=== PATIENT | male | born 1945 | race Caucasian/White ===

== ENCOUNTER 2016-08-24 15:44 | Outpatient (RCR) | payer MEDICARE ==
--- OUTSIDE RECORDS SUMMARY | 2016-08-19 09:09 | XMS REPORT | Continuity of Care Document ---
Author Author [facility] Organization [facility] Address Unknown Phone Unavailable Care Team Providers Care Delivery Engineer Name Role Phone Jayashree Wade PCP [phone] Source Comments Some departments are not documenting in the electronic medical record. If you do not see the information that you expected, contact Release of Information in the Health Information Management department at [phone] for further assistance in locating additional records.[facility] Active Allergies and Adverse Reactions No Known Allergies Current Medications Prescription Sig. Disp. Refills Start End Date Status Date aspirin 81 mg chewable Chew 1 Tab by mouth 90 Tab 3 25/20 Active tablet daily. Take with food. 16 oxyCODONE (ROXICODONE, Take 1-2 Tabs by mouth 30 Tab 0 25/20 Active OXY-IR) 5 mg tablet every 4 hours as needed 16 amiodarone (CORDARONE) Take 2 tabs twice a day 98 Tab 0 25/20 Active 200 mg tablet for 2 weeks, then 2 tabs 16 once a day for 2 weeks, then 1 tab once a day until complete warfarin (COUMADIN) 1 mg Take 0.5 Tabs by mouth at 90 Tab 3 /25/20 Active tablet bedtime daily. 16 senna/docusate Take 2 Tabs by mouth 40 Tab 0 25/20 Active (SENOKOT-S) 8.6/50 mg twice daily. 16 tablet potassium chloride SR Take 1 Tab by mouth 30 Tab 0 25/20 Active (K-DUR) 10 mEq tablet daily. Take with a meal 16 and a full glass of water. metoprolol XL (TOPROL XL) Take 1 Tab by mouth 90 Tab 3 11/25/20 Active 25 mg extended release daily. 16 tablet furosemide (LASIX) 20 mg Take 1 Tab by mouth every 30 Tab 0 08/07/20 Active tablet morning. 16 ibuprofen (MOTRIN) 800 mg Take 800 mg by mouth 08/07/20 Discontin tablet every 6 hours as needed 16 ued for Pain. Take with food. Active Problems Problem Noted Date CKD (chronic kidney disease) stage 3, GFR 30-59 ml/min 08/04/2016 Acute blood loss anemia 08/04/2016 Pulmonary hypertension (HCC) 08/02/2016 Nonrheumatic aortic valve insufficiency 08/01/2016 Non-rheumatic mitral regurgitation 08/01/2016 Dilated aortic root (HCC) 08/01/2016 Overview: Root replacement 08/03/16 Acute on chronic diastolic heart failure (HCC) 08/01/2016 Resolved Problems Problem Noted Date Resolved Date Postop shock,cardiogenic ([facility]) 08/04/2016 08/07/2016 Acute systolic heart failure (HCC) 08/04/2016 08/07/2016 Ventricular tachycardia ([facility]) 08/03/2016 08/07/2016 CAP (community acquired pneumonia) 08/01/2016 08/04/2016 Most Recent Encounters Date Type Specialty Providers Description 08/19/2016 Telephone Cardiothoracic Surgery Padilla Shelley RN Numbness 08/10/2016 Telephone Natali Williamson RN Follow-up Phone Call - [phone] 08/03/2016 [facility]iology Yuval Mcdonald PA-C Canceled (Error ) Encounter 08/03/2016 Surgery Aryan Mijares MD REPLACEMENT MITRAL VALVE 08/02/2016 Anesthesia Lorraine Quinonez MD Event 07/31/2016 Hospital Aryan Mijares MD Non-rheumatic mitral - Encounter regurgitation 08/07/2016 07/31/2016 Hospital Sterling Diana MD Encounter Social History Tobacco Use Types Packs/Day Years Used Date Never Smoker Alcohol Use Drinks/Week oz/Week Comments Yes 6 Cans of 3.6 beer Last Filed Vital Signs Vital Sign Reading Time Taken Blood Pressure 108/61 08/07/2016 12:00 PM PHOTOGRAPHIC COLORIST Pulse 63 08/07/2016 12:00 PM PHOTOGRAPHIC COLORIST Temperature 36.5 C (97.7 F) 08/07/2016 12:00 PM PHOTOGRAPHIC COLORIST Respiratory Rate - - Height 1.753 m (5' 9.02") 08/03/2016 6:45 AM PHOTOGRAPHIC COLORIST Weight 82.555 kg (182 lb) 08/07/2016 5:44 AM PHOTOGRAPHIC COLORIST Body Mass Index 26.86 08/07/2016 5:44 AM PHOTOGRAPHIC COLORIST Oxygen Saturation 97% 08/07/2016 12:00 PM PHOTOGRAPHIC COLORIST Plan of Care Date Type Specialty Providers Description 09/02/2016 Appointment Cardiothoracic Surgery Aryan Mijares MD [address] [facility] [address] [place] [address] [phone] (Fax) Health Maintenance Due Date Last Done Comments Hepatitis C Screening 1945 Physical (Comprehensive) 1952 Exam Pertussis Vaccine 1956 Tetanus Vaccine 1962 Colorectal Cancer 1995 Screening Shingles Vaccine 2005 Prevnar/Pneumovax (#1) 2010 Influenza Vaccine 05/14/2016 Procedures from Last 3 Months Procedure Name Priority Date/Time Associated Diagnosis Comments PROCEDURES-SCAN 08/11/2016 Results for this 12:09 PM PHOTOGRAPHIC COLORIST procedure are in the results section. PROCEDURES-SCAN 08/11/2016 Results for this 8:59 AM PHOTOGRAPHIC COLORIST procedure are in the results section. PROCEDURES-SCAN 08/11/2016 Results for this 8:59 AM PHOTOGRAPHIC COLORIST procedure are in the results section. PROCEDURES-SCAN 08/11/2016 Results for this 8:59 AM PHOTOGRAPHIC COLORIST procedure are in the results section. PROCEDURES-SCAN 08/11/2016 Results for this 8:58 AM PHOTOGRAPHIC COLORIST procedure are in the results section. PROCEDURES-SCAN 08/11/2016 Results for this 8:53 AM PHOTOGRAPHIC COLORIST procedure are in the results section. PROCEDURES-SCAN 08/11/2016 Results for this 8:52 AM PHOTOGRAPHIC COLORIST procedure are in the results section. PROCEDURES-SCAN 08/11/2016 Results for this 8:52 AM PHOTOGRAPHIC COLORIST procedure are in the results section. PROCEDURES-SCAN 08/05/2016 Results for this 6:58 AM PHOTOGRAPHIC COLORIST procedure are in the results section. PROCEDURES-SCAN 08/04/2016 Results for this 7:59 AM PHOTOGRAPHIC COLORIST procedure are in the results section. PROCEDURES-SCAN 08/04/2016 Results for this 7:59 AM PHOTOGRAPHIC COLORIST procedure are in the results section. PROCEDURES-SCAN 08/04/2016 Results for this 7:59 AM PHOTOGRAPHIC COLORIST procedure are in the results section. ANESTHESIA Routine 08/03/2016 Results for this TRANSEESOPHAGEAL 1:59 PM PHOTOGRAPHIC COLORIST procedure are in the ECHOCARDIOGRAM results section. ANESTHESIA PULMONARY Routine 08/03/2016 Results for this ARTERY CATHETER INSERTION 1:59 PM PHOTOGRAPHIC COLORIST procedure are in the results section. ANESTHESIA CENTRAL LINE Routine 08/03/2016 Results for this INSERTION 1:59 PM PHOTOGRAPHIC COLORIST procedure are in the results section. ANESTHESIA ARTERIAL LINE Routine 08/03/2016 Results for this INSERTION 1:59 PM PHOTOGRAPHIC COLORIST procedure are in the results section. Results from Last 3 Months PROCEDURES-SCAN (08/11/2016 12:09 PM) Narrative Ordered by an unspecified provider. PROCEDURES-SCAN (08/11/2016 8:59 AM) Narrative Ordered by an unspecified provider. PROCEDURES-SCAN (08/11/2016 8:59 AM) Narrative Ordered by an unspecified provider. PROCEDURES-SCAN (08/11/2016 8:59 AM) Narrative Ordered by an unspecified provider. PROCEDURES-SCAN (08/11/2016 8:58 AM) Narrative Ordered by an unspecified provider. PROCEDURES-SCAN (08/11/2016 8:53 AM) Narrative Ordered by an unspecified provider. PROCEDURES-SCAN (08/11/2016 8:52 AM) Narrative Ordered by an unspecified provider. PROCEDURES-SCAN (08/11/2016 8:52 AM) Narrative Ordered by an unspecified provider. CHEST 2 VIEWS (08/07/2016 6:56 AM)Only the most recent of 3 results within the time period is included. Impressions Impression: Postsurgical chest with no evidence of acute cardiopulmonary process. Finalized by Tyler Bah M.D. on 08/07/2016 7:31 AM. Dictated by Tyler Bah M.D. on 08/07/2016 7:28 AM. Narrative PA and lateral chest Clinical indication: Mitral and aortic valve disease. Pulmonary hypertension Comparison made to study one day prior. Postsurgical changes of prior median sternotomy and valve replacement are noted. Heart size is within normal limits. Mediastinal contour appears stable. There is no evidence of vascular congestion, pleural effusion or focal pulmonary infiltrate. There is no evidence of pneumothorax. Procedure Note Interface, Radiant Results - WedAug 07, 2016 7:34 AM PHOTOGRAPHIC COLORIST PA and lateral chest Clinical indication: Mitral and aortic valve disease. Pulmonary hypertension Comparison made to study one day prior. Postsurgical changes of prior median sternotomy and valve replacement are noted. Heart size is within normal limits. Mediastinal contour appears stable. There is no evidence of vascular congestion, pleural effusion or focal pulmonary infiltrate. There is no evidence of pneumothorax. IMPRESSION Impression: Postsurgical chest with no evidence of acute cardiopulmonary process. Finalized by Tyler Bah M.D. on 08/07/2016 7:31 AM. Dictated by Tyler Bah M.D. on 08/07/2016 7:28 AM. PROTIME INR (PT) (08/07/2016 4:51 AM)Only the most recent of 5 results within the time period is included. Component Value Range INR 2.2 (H) 0.8-1.2 Specimen Blood BASIC METABOLIC PANEL (08/07/2016 4:51 AM)Only the most recent of 8 results within the time period is included. Component Value Range Sodium 131 (L) 137-147 MMOL/L Potassium 4.6 3.5-5.1 MMOL/L Chloride 98 98-110 MMOL/L CO2 28 21-30 MMOL/L Anion Gap 5 3-12 Glucose 95 70-100 MG/DL Blood Urea Nitrogen 24 7-25 MG/DL Creatinine 0.94 0.4-1.24 MG/DL Calcium 8.9 8.5-10.6 MG/DL eGFR Non >60Comment: >60 mL/min The eGFR is not validated for use in drug dosing adjustments. Continue to use estimated creatinine clearance per dosing reference text. Please contact the Clinical Pharmacist for questions. eGFR >60Comment: >60 mL/min The eGFR is not validated for use in drug dosing adjustments. Continue to use estimated creatinine clearance per dosing reference text. Please contact the Clinical Pharmacist for questions. Specimen Blood CBC (08/07/2016 4:51 AM)Only the most recent of 9 results within the time period is included. Component Value Range White Blood Cells 8.6 4.5-11.0 K/UL RBC 3.28 (L) 4.4-5.5 M/UL Hemoglobin 9.2 (L) 13.5-16.5 GM/DL Hematocrit 28.5 (L) 40-50 % MCV 87.0 80-100 FL MCH 27.9 26-34 PG MCHC 32.1 32.0-36.0 G/DL RDW 14.4 11-15 % Platelet Count 186 150-400 K/UL MPV 8.3 7-11 FL Specimen Blood POC GLUCOSE (08/06/2016 8:42 PM)Only the most recent of 39 results within the time period is included. Component Value Range Glucose, POC 112 (H) 70-100 MG/DL CHEST SINGLE VIEW (08/06/2016 5:36 AM)Only the most recent of 5 results within the time period is included. Impressions 1. Resolution of trace right apical pneumothorax. 2. Prior median sternotomy and aortic valve replacement. Approved by Valorie Dumont M.D. on 08/06/2016 11:56 AM By my electronic signature, I attest that I have personally reviewed the images for this examination and formulated the interpretations and opinions expressed in this report Finalized by Tyler Bah M.D. on 08/06/2016 12:24 PM. Dictated by Valorie Dumont M.D. on 08/06/2016 10:52 AM. Narrative EXAM: CHEST SINGLE VIEW HISTORY: s/p AVR, aortic valve replacement. TECHNIQUE: A single portable AP view of the chest was obtained. COMPARISON: Chest radiograph August 05, 2016 FINDINGS: Prior median sternotomy and aortic valve replacement. The heart is normal in size without pulmonary venous congestion. Resolution of trace right apical pneumothorax. No pleural effusion. Persistent mild bibasilar atelectasis. Procedure Note Interface, Radiant Results - [place] Aug 06, 2016 12:28 PM PHOTOGRAPHIC COLORIST EXAM: CHEST SINGLE VIEW HISTORY: s/p AVR, aortic valve replacement. TECHNIQUE: A single portable AP view of the chest was obtained. COMPARISON: Chest radiograph August 05, 2016 FINDINGS: Prior median sternotomy and aortic valve replacement. The heart is normal in size without pulmonary venous congestion. Resolution of trace right apical pneumothorax. No pleural effusion. Persistent mild bibasilar atelectasis. IMPRESSION 1. Resolution of trace right apical pneumothorax. 2. Prior median sternotomy and aortic valve replacement. Approved by Valorie Dumont M.D. on 08/06/2016 11:56 AM By my electronic signature, I attest that I have personally reviewed the images for this examination and formulated the interpretations and opinions expressed in this report Finalized by Tyler Bah M.D. on 08/06/2016 12:24 PM. Dictated by Valorie Dumont M.D. on 08/06/2016 10:52 AM. PROCEDURES-SCAN (08/05/2016 6:58 AM) Narrative Ordered by an unspecified provider. O2 SATURATION, MIXED VENOUS (08/04/2016 9:18 AM)Only the most recent of 4 results within the time period is included. Component Value Range [id number] Venous 57.2 % Specimen Blood PROCEDURES-SCAN (08/04/2016 7:59 AM) Narrative Ordered by an unspecified provider. PROCEDURES-SCAN (08/04/2016 7:59 AM) Narrative Ordered by an unspecified provider. PROCEDURES-SCAN (08/04/2016 7:59 AM) Narrative Ordered by an unspecified provider. POTASSIUM (08/03/2016 8:30 PM) Component Value Range Potassium 4.1 3.5-5.1 MMOL/L Specimen Blood BLOOD GASES, ARTERIAL (08/03/2016 8:30 PM)Only the most recent of 2 results within the time period is included. Component Value Range pH-Arterial 7.46 (H) 7.35-7.45 pCO2-Arterial 30 (L) 35-45 MMHG pO2-Arterial 90 80-100 MMHG Base Deficit-Arterial 2.0 MMOL/L O2 Sat-Arterial 97.6 95-99 % Jimfwnffede-EQW-Oxt 22.7 21-28 MMOL/L Specimen Blood, arterial - Blood POC BLOOD GAS ARTERIAL (08/03/2016 7:08 PM)Only the most recent of 6 results within the time period is included. Component Value Range PH-ART-POC 7.41 7.35-7.45 SYM7-XOI-WMF 29 (L) 35-45 MMHG PO2-ART-POC 78 (L) 80-100 MMHG Base Def-ART-POC 6.0 MMOL/L O2 Sat-ART-POC 96.0 95-99 % Okqpwnnklur-PUZ-HBF 18.2 (L) 21-28 MMOL/L LINE [facility] 1V CXR (08/03/2016 2:43 PM) Impressions 1.INTERVAL STERNOTOMY AND PROSTHETIC MITRAL VALVE REPLACEMENT. 2.TUBES AND LINES IN PLACE ABOVE. 3.NO SIGNIFICANT CHANGE IN RIGHT UPPER LOBE ALVEOLAR INFILTRATE CONCERNING FOR PNEUMONIA. Approved by Jeffrey Pratt M.D. on 08/03/2016 3:53 PM By my electronic signature, I attest that I have personally reviewed the images for this examination and formulated the interpretations and opinions expressed in this report Finalized by Antonio Santiago M.D. on 08/03/2016 4:04 PM. Dictated by Jeffrey Pratt M.D. on 08/03/2016 3:00 PM. Narrative LINE [facility]CMT 1V CXR History: ET Tube and Line Placement. Technique: Single portable AP upright view of the chest was obtained. Comparison: Chest x-ray from August 02, 2016. Findings: ET tube in place approximately well above the johnny. Right IJ L[place]-Yessenia catheter in place with tip overlying the main pulmonary artery. Right thoracostomy tube and [address] Median sternotomy and prosthetic mitral valve replacement. The cardiac silhouette is within normal limits of size. There is no pulmonary vascular congestion. No pneumothorax. Patchy alveolar consolidation involving the right upper lobe is unchanged. Small bilateral pleural effusions , right greater than left. Procedure Note Interface, Radiant Results - WedAug 03, 2016 4:07 PM PHOTOGRAPHIC COLORIST LINE PLCMT 1V CXR History: ET Tube and Line Placement. Technique: Single portable AP upright view of the chest was obtained. Comparison: Chest x-ray from August 02, 2016. Findings: ET tube in place approximately well above the johnny. Right IJ L[place]-Yessenia catheter in place with tip overlying the main pulmonary artery. Right thoracostomy tube and [address] Median sternotomy and prosthetic mitral valve replacement. The cardiac silhouette is within normal limits of size. There is no pulmonary vascular congestion. No pneumothorax. Patchy alveolar consolidation involving the right upper lobe is unchanged. Small bilateral pleural effusions , right greater than left. IMPRESSION 1. INTERVAL STERNOTOMY AND PROSTHETIC MITRAL VALVE REPLACEMENT. 2. TUBES AND LINES IN PLACE ABOVE. 3. NO SIGNIFICANT CHANGE IN RIGHT UPPER LOBE ALVEOLAR INFILTRATE CONCERNING FOR PNEUMONIA. Approved by Jeffrey Pratt M.D. on 08/03/2016 3:53 PM By my electronic signature, I attest that I have personally reviewed the images for this examination and formulated the interpretations and opinions expressed in this report Finalized by Antonio Santiago M.D. on 08/03/2016 4:04 PM. Dictated by Jeffrey Pratt M.D. on 08/03/2016 3:00 PM. POC IONIZED CALCIUM (08/03/2016 2:27 PM)Only the most recent of 7 results within the time period is included. Component Value Range Ionized Calcium-POC 1.16 1.0-1.3 MMOL/L POC SODIUM (08/03/2016 2:27 PM)Only the most recent of 7 results within the time period is included. Component Value Range Sodium-POC 137 137-147 MMOL/L POC POTASSIUM (08/03/2016 2:27 PM)Only the most recent of 7 results within the time period is included. Component Value Range Potassium-POC 3.6 3.5-5.1 MMOL/L POC HEMATOCRIT (08/03/2016 2:27 PM)Only the most recent of 7 results within the time period is included. Component Value Range Hemoglobin POC 9.9 (L) 13.5-16.5 GM/DL Hematocrit POC 29.0 (L) 40-50 % MAGNESIUM (08/03/2016 2:20 PM) Component Value Range Magnesium 3.3 (H) 1.6-2.6 MG/DL Specimen Blood PTT (APTT) (08/03/2016 2:20 PM)Only the most recent of 2 results within the time period is included. Component Value Range APTT 27.0 24.0-40.0 SEC Specimen Blood ANESTHESIA TRANSEESOPHAGEAL ECHOCARDIOGRAM (08/03/2016 1:59 PM) Rosanna Huerta MD 08/03/20161:59 PM Anesthesia Procedure: Arterial Line Placement A-LINE INSERTION Date/Time: 08/03/2016 7:39 AM Patient location: OR Indications: hemodynamic monitoring Staff Anesthesiologist: IVON HUERTA Preprocedure checklist performed: 2 patient identifiers, risks & benefits discussed, patient evaluated, consent obtained and patient being monitored Arterial Line Procedure Patient sedated: yes (see MAR) Sedation type: general; Artery prepped with chlorhexidine; skin prep agent completely dried prior to procedure. Location: radial artery Technique: palpation Needle gauge: 20 G Number of attempts: 1 Procedure Outcome Catheter secured with adhesive dressing applied Events: no complications noted during insertion Observation: pt tolerated well Anesthesia Procedure: Central Venous Catheter Line CENTRAL LINE INSERTION Date/Time: 08/03/2016 7:41 AM Patient location: OR Indications: hemodynamic pressure monitoring Staff Anesthesiologist: IVON HUERTA Performed by: IVON HUERTA Preprocedure checklist performed: 2 patient identifiers, risks & benefits discussed, patient evaluated, timeout performed, consent obtained, patient being monitored and CVC bundle followed (proper hand washing, maximal sterile barrier technique with cap, sterile gown, sterile glove, sterile drape, and skin prep for antisepsis) CVC Line Insertion Procedure Patient sedated: yes Sedation given: generalSkin prepped with chlorhexidine; skin prep agent completely dried prior to procedure. Location: internal jugular vein Laterality: right Vein identification: anatomical landmarks Number of attempts: 1 Successful placement: yes Catheter: Catheter type: introducer placed using standard wire through needle technique Catheter size: 9 Fr Procedure Outcome Post procedure: all ports aspirated, dressing applied and line sutured; Dressing: sterile occlusive dressing Events: none Observations: patient tolerated well Anesthesia Procedure: Pulmonary Artery Catheter PULMONARY ARTERY CATHETER INSERTION Date/Time: 08/03/2016 8:05 AM This note is used in conjunction with the CVC Line Insertion note for additional details regarding the insertion of a Pulmonary Artery Catheter: Anesthesiologist: IVON HUERTA Inserted by: IVON HUERTA PA Catheter Insertion Procedure Catheter type: standard Insertion depth: 45 cm Events: none Anesthesia Procedure: Transesophageal Echocardiogram BRENDAN Date/Time: 08/03/2016 9:10 AM Associated procedure: MVR Preprocedure checklist performed: 2 patient identifiers, risks & benefits discussed, patient evaluated, timeout performed, consent obtained and patient being monitored Staff Anesthesiologist: IVON HUERTA Performed personally Indication for BRENDAN: assessment of ascending aorta, confirmation of pre-procedure diagnosis and valvular assessment CPT codes: 40804 - BRENDAN 2D imaging (w or w/o M-mode) including probe placement, image acquisition, interpretation & report, 29539 - PWD and/or CWD f/u or limited study and 23548 - Color flow velocity mapping Patient location: OR Intubated: yes Bite block: yes Heart visualized: yes Insertion: easy Probe type: multiplane Modalities: 2D, color flow mapping, pulse wave Doppler and continuous wave Doppler Echocardiographic and Doppler Measurements Ventricular Findings Right Ventricle RV cavity size: normal RV hypertrophy: no RV thrombus: no RV global function: normal Left Ventricle LV cavity size: normal LV hypertrophy: no LV thrombus: no LV global function: normal LV ejection fraction: 50% Ventricular Wall Motion Four Chamber View Basal anterolateral: normal Basal inferoseptal: normal Mid anterolateral: normal Mid inferoseptal: normal Apical lateral: normal Apical septal: normal Two Chamber View Basal anterior: normal Basal inferior: normal Mid anterior: normal Mid inferior: normal Apical anterior: normal Apical inferior: normal Long [place] View Basal anteroseptal: normal Basal inferolateral: normal Mid anteroseptal: normal Mid inferolateral: normal Apical lateral: normal Apical septal: normal [place]: normal Mid Short [place] View Mid anteroseptal: normal Mid anterior: normal Mid anterolateral: normal Mid inferolateral: normal Mid inferior: normal Mid inferoseptal: normal Valves Aortic Valve Annulus: dilated Stenosis: none Annulus measurement: 2.9 cm Regurgitation severity: mild and Eccentric jet; unable to obtain P1/2t. vena contracta=0.38 Leaflet morphology: normal Leaflet motion: normal Mitral Valve Annulus: dilated Stenosis: none Regurgitation severity: severe Leaflet motion: flail Tricuspid Valve Annulus: normal Stenosis: none Regurgitation severity: mild Leaflet morphology: normal Leaflet motion: normal Pulmonic Valve Annulus: normal Stenosis: none Regurgitation severity: mild Leaflet morphology: normal Aorta Ascending Aorta Size: dilated Diameter: 4.8 cm Dissection: no Plaque thickness: 0-3 mm Plaque mobile: no Sinotubular Junction Size: dilated Diameter: 3.9 cm Dissection: no Plaque thickness: 0-3 mm Plaque mobile: no Sinus of Valsalva Size: dilated Diameter: 4.3 cm Dissection: no Plaque thickness: 0-3 mm Plaque mobile: no Descending Thoracic Aorta Size: normal Dissection: no Plaque thickness: 0-3 mm Plaque mobile: no Atria Right Atrium Size: normal SEC (smoke): no Thrombus: no Tumor: no Device: no Left Atrium Size: normal SEC (smoke): no Thrombus: no Tumor: no Device: no Left atrial appendage size: normal Septa Intra-atrial septal morphology: normal Intra-ventricular septal morphology: normal Other Findings Pericardium: normal Pleural effusion: none Pulmonary arteries: normal Pulmonary venous flow: normal Post Procedure Mitral valve replacement Perivalvular leak: no Mean gradient (mmHg): Systolic anterior motion of the mitral valve: no Return to CBT for echo-related diagnosis: no Aorta intact after decannulation: yes Post-procedure LVEF measured: yes; 40% Post-procedure RV dysfunction: mild dysfunction ANESTHESIA PULMONARY ARTERY CATHETER INSERTION (08/03/2016 1:59 PM) Rosanna Huerta MD 08/03/20161:59 PM Anesthesia Procedure: Arterial Line Placement A-LINE INSERTION Date/Time: 08/03/2016 7:39 AM Patient location: OR Indications: hemodynamic monitoring Staff Anesthesiologist: IVON HUERTA Preprocedure checklist performed: 2 patient identifiers, risks & benefits discussed, patient evaluated, consent obtained and patient being monitored Arterial Line Procedure Patient sedated: yes (see MAR) Sedation type: general; Artery prepped with chlorhexidine; skin prep agent completely dried prior to procedure. Location: radial artery Technique: palpation Needle gauge: 20 G Number of attempts: 1 Procedure Outcome Catheter secured with adhesive dressing applied Events: no complications noted during insertion Observation: pt tolerated well Anesthesia Procedure: Central Venous Catheter Line CENTRAL LINE INSERTION Date/Time: 08/03/2016 7:41 AM Patient location: OR Indications: hemodynamic pressure monitoring Staff Anesthesiologist: IVON HUERTA Performed by: IVON HUERTA Preprocedure checklist performed: 2 patient identifiers, risks & benefits discussed, patient evaluated, timeout performed, consent obtained, patient being monitored and CVC bundle followed (proper hand washing, maximal sterile barrier technique with cap, sterile gown, sterile glove, sterile drape, and skin prep for antisepsis) CVC Line Insertion Procedure Patient sedated: yes Sedation given: generalSkin prepped with chlorhexidine; skin prep agent completely dried prior to procedure. Location: internal jugular vein Laterality: right Vein identification: anatomical landmarks Number of attempts: 1 Successful placement: yes Catheter: Catheter type: introducer placed using standard wire through needle technique Catheter size: 9 Fr Procedure Outcome Post procedure: all ports aspirated, dressing applied and line sutured; Dressing: sterile occlusive dressing Events: none Observations: patient tolerated well Anesthesia Procedure: Pulmonary Artery Catheter PULMONARY ARTERY CATHETER INSERTION Date/Time: 08/03/2016 8:05 AM This note is used in conjunction with the CVC Line Insertion note for additional details regarding the insertion of a Pulmonary Artery Catheter: Anesthesiologist: IVON HUERTA Inserted by: IVON HUERTA PA Catheter Insertion Procedure Catheter type: standard Insertion depth: 45 cm Events: none Anesthesia Procedure: Transesophageal Echocardiogram BRENDAN Date/Time: 08/03/2016 9:10 AM Associated procedure: MVR Preprocedure checklist performed: 2 patient identifiers, risks & benefits discussed, patient evaluated, timeout performed, consent obtained and patient being monitored Staff Anesthesiologist: IVON HUERTA Performed personally Indication for BRENDAN: assessment of ascending aorta, confirmation of pre-procedure diagnosis and valvular assessment CPT codes: 03251 - BRENDAN 2D imaging (w or w/o M-mode) including probe placement, image acquisition, interpretation & report, 76515 - PWD and/or CWD f/u or limited study and 07213 - Color flow velocity mapping Patient location: OR Intubated: yes Bite block: yes Heart visualized: yes Insertion: easy Probe type: multiplane Modalities: 2D, color flow mapping, pulse wave Doppler and continuous wave Doppler Echocardiographic and Doppler Measurements Ventricular Findings Right Ventricle RV cavity size: normal RV hypertrophy: no RV thrombus: no RV global function: normal Left Ventricle LV cavity size: normal LV hypertrophy: no LV thrombus: no LV global function: normal LV ejection fraction: 50% Ventricular Wall Motion Four Chamber View Basal anterolateral: normal Basal inferoseptal: normal Mid anterolateral: normal Mid inferoseptal: normal Apical lateral: normal Apical septal: normal Two Chamber View Basal anterior: normal Basal inferior: normal Mid anterior: normal Mid inferior: normal Apical anterior: normal Apical inferior: normal [place] Basal anteroseptal: normal Basal inferolateral: normal Mid anteroseptal: normal Mid inferolateral: normal Apical lateral: normal Apical septal: normal [place]: normal Mid Short [place] Mid anteroseptal: normal Mid anterior: normal Mid anterolateral: normal Mid inferolateral: normal Mid inferior: normal Mid inferoseptal: normal Valves Aortic Valve Annulus: dilated Stenosis: none Annulus measurement: 2.9 cm Regurgitation severity: mild and Eccentric jet; unable to obtain P1/2t. vena contracta=0.38 Leaflet morphology: normal Leaflet motion: normal Mitral Valve Annulus: dilated Stenosis: none Regurgitation severity: severe Leaflet motion: flail Tricuspid Valve Annulus: normal Stenosis: none Regurgitation severity: mild Leaflet morphology: normal Leaflet motion: normal Pulmonic Valve Annulus: normal Stenosis: none Regurgitation severity: mild Leaflet morphology: normal Aorta Ascending Aorta Size: dilated Diameter: 4.8 cm Dissection: no Plaque thickness: 0-3 mm Plaque mobile: no Sinotubular Junction Size: dilated Diameter: 3.9 cm Dissection: no Plaque thickness: 0-3 mm Plaque mobile: no Sinus of Valsalva Size: dilated Diameter: 4.3 cm Dissection: no Plaque thickness: 0-3 mm Plaque mobile: no Descending Thoracic Aorta Size: normal Dissection: no Plaque thickness: 0-3 mm Plaque mobile: no Atria Right Atrium Size: normal SEC (smoke): no Thrombus: no Tumor: no Device: no Left Atrium Size: normal SEC (smoke): no Thrombus: no Tumor: no Device: no Left atrial appendage size: normal Septa Intra-atrial septal morphology: normal Intra-ventricular septal morphology: normal Other Findings Pericardium: normal Pleural effusion: none Pulmonary arteries: normal Pulmonary venous flow: normal Post Procedure Mitral valve replacement Perivalvular leak: no Mean gradient (mmHg): Systolic anterior motion of the mitral valve: no Return to [facility] for echo-related diagnosis: no Aorta intact after decannulation: yes Post-procedure LVEF measured: yes; 40% Post-procedure RV dysfunction: mild dysfunction ANESTHESIA CENTRAL LINE INSERTION (08/03/2016 1:59 PM) Rosanna Huerta MD 08/03/20161:59 PM Anesthesia Procedure: Arterial Line Placement A-LINE INSERTION Date/Time: 08/03/2016 7:39 AM Patient location: OR Indications: hemodynamic monitoring Staff Anesthesiologist: IVON HUERTA Preprocedure checklist performed: 2 patient identifiers, risks & benefits discussed, patient evaluated, consent obtained and patient being monitored Arterial Line Procedure Patient sedated: yes (see MAR) Sedation type: general; Artery prepped with chlorhexidine; skin prep agent completely dried prior to procedure. Location: radial artery Technique: palpation Needle gauge: 20 G Number of attempts: 1 Procedure Outcome Catheter secured with adhesive dressing applied Events: no complications noted during insertion Observation: pt tolerated well Anesthesia Procedure: Central Venous Catheter Line CENTRAL LINE INSERTION Date/Time: 08/03/2016 7:41 AM Patient location: OR Indications: hemodynamic pressure monitoring Staff Anesthesiologist: IVON HUERTA Performed by: IVON HUERTA Preprocedure checklist performed: 2 patient identifiers, risks & benefits discussed, patient evaluated, timeout performed, consent obtained, patient being monitored and CVC bundle followed (proper hand washing, maximal sterile barrier technique with cap, sterile gown, sterile glove, sterile drape, and skin prep for antisepsis) CVC Line Insertion Procedure Patient sedated: yes Sedation given: generalSkin prepped with chlorhexidine; skin prep agent completely dried prior to procedure. Location: internal jugular vein Laterality: right Vein identification: anatomical landmarks Number of attempts: 1 Successful placement: yes Catheter: Catheter type: introducer placed using standard wire through needle technique Catheter size: 9 Fr Procedure Outcome Post procedure: all ports aspirated, dressing applied and line sutured; Dressing: sterile occlusive dressing Events: none Observations: patient tolerated well Anesthesia Procedure: Pulmonary Artery Catheter PULMONARY ARTERY CATHETER INSERTION Date/Time: 08/03/2016 8:05 AM This note is used in conjunction with the CVC Line Insertion note for additional details regarding the insertion of a Pulmonary Artery Catheter: Anesthesiologist: IVON HUERTA Inserted by: IVON HUERTA PA Catheter Insertion Procedure Catheter type: standard Insertion depth: 45 cm Events: none Anesthesia Procedure: Transesophageal Echocardiogram BRENDAN Date/Time: 08/03/2016 9:10 AM Associated procedure: MVR Preprocedure checklist performed: 2 patient identifiers, risks & benefits discussed, patient evaluated, timeout performed, consent obtained and patient being monitored Staff Anesthesiologist: IVON HUERTA Performed personally Indication for BRENDAN: assessment of ascending aorta, confirmation of pre-procedure diagnosis and valvular assessment CPT codes: 59506 - BRENDAN 2D imaging (w or w/o M-mode) including probe placement, image acquisition, interpretation & report, 74839 - PWD and/or CWD f/u or limited study and 64492 - Color flow velocity mapping Patient location: OR Intubated: yes Bite block: yes Heart visualized: yes Insertion: easy Probe type: multiplane Modalities: 2D, color flow mapping, pulse wave Doppler and continuous wave Doppler Echocardiographic and Doppler Measurements Ventricular Findings Right Ventricle RV cavity size: normal RV hypertrophy: no RV thrombus: no RV global function: normal Left Ventricle LV cavity size: normal LV hypertrophy: no LV thrombus: no LV global function: normal LV ejection fraction: 50% Ventricular Wall Motion Four Chamber View Basal anterolateral: normal Basal inferoseptal: normal Mid anterolateral: normal Mid inferoseptal: normal Apical lateral: normal Apical septal: normal Two Chamber View Basal anterior: normal Basal inferior: normal Mid anterior: normal Mid inferior: normal Apical anterior: normal Apical inferior: normal [place] Basal anteroseptal: normal Basal inferolateral: normal Mid anteroseptal: normal Mid inferolateral: normal Apical lateral: normal Apical septal: normal [place]: normal Mid Short [place] Mid anteroseptal: normal Mid anterior: normal Mid anterolateral: normal Mid inferolateral: normal Mid inferior: normal Mid inferoseptal: normal Valves Aortic Valve Annulus: dilated Stenosis: none Annulus measurement: 2.9 cm Regurgitation severity: mild and Eccentric jet; unable to obtain P1/2t. vena contracta=0.38 Leaflet morphology: normal Leaflet motion: normal Mitral Valve Annulus: dilated Stenosis: none Regurgitation severity: severe Leaflet motion: flail Tricuspid Valve Annulus: normal Stenosis: none Regurgitation severity: mild Leaflet morphology: normal Leaflet motion: normal Pulmonic Valve Annulus: normal Stenosis: none Regurgitation severity: mild Leaflet morphology: normal Aorta Ascending Aorta Size: dilated Diameter: 4.8 cm Dissection: no Plaque thickness: 0-3 mm Plaque mobile: no Sinotubular Junction Size: dilated Diameter: 3.9 cm Dissection: no Plaque thickness: 0-3 mm Plaque mobile: no Sinus of Valsalva Size: dilated Diameter: 4.3 cm Dissection: no Plaque thickness: 0-3 mm Plaque mobile: no Descending Thoracic Aorta Size: normal Dissection: no Plaque thickness: 0-3 mm Plaque mobile: no Atria Right Atrium Size: normal SEC (smoke): no Thrombus: no Tumor: no Device: no Left Atrium Size: normal SEC (smoke): no Thrombus: no Tumor: no Device: no Left atrial appendage size: normal Septa Intra-atrial septal morphology: normal Intra-ventricular septal morphology: normal Other Findings Pericardium: normal Pleural effusion: none Pulmonary arteries: normal Pulmonary venous flow: normal Post Procedure Mitral valve replacement Perivalvular leak: no Mean gradient (mmHg): Systolic anterior motion of the mitral valve: no Return to [facility] for echo-related diagnosis: no Aorta intact after decannulation: yes Post-procedure LVEF measured: yes; 40% Post-procedure RV dysfunction: mild dysfunction ANESTHESIA ARTERIAL LINE INSERTION (08/03/2016 1:59 PM) Rosanna Huerta MD 08/03/20161:59 PM Anesthesia Procedure: Arterial Line Placement A-LINE INSERTION Date/Time: 08/03/2016 7:39 AM Patient location: OR Indications: hemodynamic monitoring Staff Anesthesiologist: IVON HUERTA Preprocedure checklist performed: 2 patient identifiers, risks & benefits discussed, patient evaluated, consent obtained and patient being monitored Arterial Line Procedure Patient sedated: yes (see MAR) Sedation type: general; Artery prepped with chlorhexidine; skin prep agent completely dried prior to procedure. Location: radial artery Technique: palpation Needle gauge: 20 G Number of attempts: 1 Procedure Outcome Catheter secured with adhesive dressing applied Events: no complications noted during insertion Observation: pt tolerated well Anesthesia Procedure: Central Venous Catheter Line CENTRAL LINE INSERTION Date/Time: 08/03/2016 7:41 AM Patient location: OR Indications: hemodynamic pressure monitoring Staff Anesthesiologist: IVON HUERTA Performed by: IVON HUERTA Preprocedure checklist performed: 2 patient identifiers, risks & benefits discussed, patient evaluated, timeout performed, consent obtained, patient being monitored and CVC bundle followed (proper hand washing, maximal sterile barrier technique with cap, sterile gown, sterile glove, sterile drape, and skin prep for antisepsis) CVC Line Insertion Procedure Patient sedated: yes Sedation given: generalSkin prepped with chlorhexidine; skin prep agent completely dried prior to procedure. Location: internal jugular vein Laterality: right Vein identification: anatomical landmarks Number of attempts: 1 Successful placement: yes Catheter: Catheter type: introducer placed using standard wire through needle technique Catheter size: 9 Fr Procedure Outcome Post procedure: all ports aspirated, dressing applied and line sutured; Dressing: sterile occlusive dressing Events: none Observations: patient tolerated well Anesthesia Procedure: Pulmonary Artery Catheter PULMONARY ARTERY CATHETER INSERTION Date/Time: 08/03/2016 8:05 AM This note is used in conjunction with the CVC Line Insertion note for additional details regarding the insertion of a Pulmonary Artery Catheter: Anesthesiologist: IVON HUERTA Inserted by: IVON HUERTA PA Catheter Insertion Procedure Catheter type: standard Insertion depth: 45 cm Events: none Anesthesia Procedure: Transesophageal Echocardiogram BRENDAN Date/Time: 08/03/2016 9:10 AM Associated procedure: MVR Preprocedure checklist performed: 2 patient identifiers, risks & benefits discussed, patient evaluated, timeout performed, consent obtained and patient being monitored Staff Anesthesiologist: IVON HUERTA Performed personally Indication for BRENDNA: assessment of ascending aorta, confirmation of pre-procedure diagnosis and valvular assessment CPT codes: 59058 - BRENDAN 2D imaging (w or w/o M-mode) including probe placement, image acquisition, interpretation & report, 69380 - PWD and/or CWD f/u or limited study and 14461 - Color flow velocity mapping Patient location: OR Intubated: yes Bite block: yes Heart visualized: yes Insertion: easy Probe type: multiplane Modalities: 2D, color flow mapping, pulse wave Doppler and continuous wave Doppler Echocardiographic and Doppler Measurements Ventricular Findings Right Ventricle RV cavity size: normal RV hypertrophy: no RV thrombus: no RV global function: normal Left Ventricle LV cavity size: normal LV hypertrophy: no LV thrombus: no LV global function: normal LV ejection fraction: 50% Ventricular Wall Motion Four Chamber View Basal anterolateral: normal Basal inferoseptal: normal Mid anterolateral: normal Mid inferoseptal: normal Apical lateral: normal Apical septal: normal Two [place] View Basal anterior: normal Basal inferior: normal Mid anterior: normal Mid inferior: normal Apical anterior: normal Apical inferior: normal [place] Basal anteroseptal: normal Basal inferolateral: normal Mid anteroseptal: normal Mid inferolateral: normal Apical lateral: normal Apical septal: normal [place]: normal Mid [place] Mid anteroseptal: normal Mid anterior: normal Mid anterolateral: normal Mid inferolateral: normal Mid inferior: normal Mid inferoseptal: normal Valves Aortic Valve Annulus: dilated Stenosis: none Annulus measurement: 2.9 cm Regurgitation severity: mild and Eccentric jet; unable to obtain P1/2t. vena contracta=0.38 Leaflet morphology: normal Leaflet motion: normal Mitral Valve Annulus: dilated Stenosis: none Regurgitation severity: severe Leaflet motion: flail Tricuspid Valve Annulus: normal Stenosis: none Regurgitation severity: mild Leaflet morphology: normal Leaflet motion: normal Pulmonic Valve Annulus: normal Stenosis: none Regurgitation severity: mild Leaflet morphology: normal Aorta Ascending Aorta Size: dilated Diameter: 4.8 cm Dissection: no Plaque thickness: 0-3 mm Plaque mobile: no Sinotubular Junction Size: dilated Diameter: 3.9 cm Dissection: no Plaque thickness: 0-3 mm Plaque mobile: no Sinus of Valsalva Size: dilated Diameter: 4.3 cm Dissection: no Plaque thickness: 0-3 mm Plaque mobile: no Descending Thoracic Aorta Size: normal Dissection: no Plaque thickness: 0-3 mm Plaque mobile: no Atria Right Atrium Size: normal SEC (smoke): no Thrombus: no Tumor: no Device: no Left Atrium Size: normal SEC (smoke): no Thrombus: no Tumor: no Device: no Left atrial appendage size: normal Septa Intra-atrial septal morphology: normal Intra-ventricular septal morphology: normal Other Findings Pericardium: normal Pleural effusion: none Pulmonary arteries: normal Pulmonary venous flow: normal Post Procedure Mitral valve replacement Perivalvular leak: no Mean gradient (mmHg): Systolic anterior motion of the mitral valve: no Return to [facility] for echo-related diagnosis: no Aorta intact after decannulation: yes Post-procedure LVEF measured: yes; 40% Post-procedure RV dysfunction: mild dysfunction SURGICAL PATHOLOGY (08/03/2016 1:43 PM) Component Value Range PATHOLOGY REPORT [email or web address] Yoanna Moreno MD, PhD, Director of Anatomic Pathology Department of Pathology and Laboratory Medicine [address] [place] [id number] Surgical Pathology Office: [phone] SURGICAL PATHOLOGY REPORT NAME: CORI GOMEZ SURG PATH #: [id number] MR #: [id number] SPECIMEN CLASS: SR BILLING #: [id number] ALT ID #: LOCATION: [facility] DATE OF PROCEDURE: 08/03/2016 AGE: 70 SEX: M DATE RECEIVED: 08/03/2016 : 1945 TIME RECEIVED: 13:43 PHYSICIAN: ARYAN MIJARES CTS DATE OF REPORT: 08/04/2016 COPY TO: DATE OF PRINTIN08/04/2016 ################################################## ###################### Final Diagnosis: A. Aorta, "ascending aorta", excision: Mild myxoid degeneration, consistent with aortic aneurysm clinically. B. Valve, "anterior mitral valve leaflets", excision: Myxoid degeneration and fibrosis. Attestation: By this signature, I attest that I have personally formulated the final interpretation expressed in this report and that the above diagnosis is based upon my examination of the slides and/or other material indicated in this report. +++Electronically Signed Out By+++ [facility]/08/03/2016 Interpreted by: Erin Son M.D. 08/04/2016 ################################################## ###################### Material Received: A: ascending aorta B: anterior mitral valve leaflets History: 70-year-old male with a clinical history of mitral regurgitation, aortic regurgitation, ascending aortic aneurysm. Gross Description: A. Fixative: Formalin Labeled: "Ascending aorta" Dimensions: 6.0 x 6.0 x 1.5 cm aggregate Calcifications: No Cassette A1- Adolescent Coordinator sections of aorta (j) B. Fixative: Formalin Labeled: "Anterior mitral valve leaflet" Dimensions: 4.0 x 2.5 x 0.3 Cassette B1- Adolescent Coordinator sections of valve. (j) jkh/08/03/2016 POC BLOOD GAS OMAR (08/03/2016 12:45 PM)Only the most recent of 2 results within the time period is included. Component Value Range PH-OMAR-POC 7.38 7.30-7.40 RTN4-NVM-XMD 41 36-50 MMHG PO2-OMAR-POC 43 33-48 MMHG Base Def-OMAR-POC 1.0 MMOL/L O2 Sat-OMAR-POC 78.0 (H) 55-71 % Zillhojqczs-PKJ-VDV 24.5 MMOL/L POC ACTIVATED CLOTTING TIME (08/03/2016 12:42 PM)Only the most recent of 6 results within the time period is included. Component Value Range Activated Clotting Time 110 s PREPARE APHERESIS PLATELETS (08/03/2016 6:56 AM) Component Value Range Units Ordered 1 Unit Number [id number] Blood Component Type APHERESIS PLT,LEUKO REDUCED,1ST CONT. Unit Division 0 Status OF Unit REL FROM ALLOC Transfusion Status OK TO TRANSFUSE Specimen Other (Specify) PREPARE PLASMA (FFP) (08/03/2016 6:55 AM) Component Value Range Units Ordered 4 Unit Number [id number] Blood Component Type APHERESIS PLASMA RT 2 Unit Division 0 Status OF Unit TRANSFUSED Transfusion Status OK TO TRANSFUSE Unit Number [id number] Blood Component Type APHERESIS PLASMA THAWED Unit Division 0 Status OF Unit REL FROM ALLOC Transfusion Status OK TO TRANSFUSE Unit Number [id number] Blood Component Type APHERESIS PLASMA THAWED Unit Division 0 Status OF Unit REL FROM ALLOC Transfusion Status OK TO TRANSFUSE Unit Number [id number] Blood Component Type THAWED PLASMA Unit Division 0 Status OF Unit TRANSFUSED Transfusion Status OK TO TRANSFUSE US DUPLEX SCAN CAROTID BILATERAL (08/03/2016 12:38 AM) Impressions Minimal bilateral common carotid intimal thickening and noncalcified atherosclerotic plaque, without hemodynamically significant carotid stenosis. By my electronic signature, I attest that I have personally reviewed the images for this examination and formulated the interpretations and opinions expressed in this report Finalized by Des Triana M.D. on 08/03/2016 1:33 AM. Dictated by Saurav Foster M.D. on 08/03/2016 1:27 AM. Narrative CAROTID DOPPLER ULTRASOUND: CLINICAL INDICATION: Preoperative evaluation TECHNIQUE: Multiple real-time grayscale sonographic images, color Doppler images , and duplex Doppler images were obtained of both carotid and vertebral arteries. FINDINGS: Doppler Measurements: Right: Left: Peak CCA 57 71 Peak ECA 129 81 Peak ICA 75 74 Diastolic ICA28 24 ICA/CCA Ratio1.3 1.0 (velocities given in cm/second) Minimal intimal thickening and noncalcified plaque is seen within the bilateral common carotid arteries.. The vertebral arteries are patent and show normal direction of flow. The spectral analysis is normal. Procedure Note Interface, Radiant Results - WedAug 03, 2016 1:36 AM PHOTOGRAPHIC COLORIST CAROTID DOPPLER ULTRASOUND: CLINICAL INDICATION: Preoperative evaluation TECHNIQUE: Multiple real-time grayscale sonographic images, color Doppler images , and duplex Doppler images were obtained of both carotid and vertebral arteries. FINDINGS: Doppler Measurements: Right: Left: Peak CCA 57 71 Peak ECA 129 81 Peak ICA 75 74 Diastolic ICA 28 24 ICA/CCA Ratio 1.3 1.0 (velocities given in cm/second) Minimal intimal thickening and noncalcified plaque is seen within the bilateral common carotid arteries.. The vertebral arteries are patent and show normal direction of flow. The spectral analysis is normal. IMPRESSION Minimal bilateral common carotid intimal thickening and noncalcified atherosclerotic plaque, without hemodynamically significant carotid stenosis. By my electronic signature, I attest that I have personally reviewed the images for this examination and formulated the interpretations and opinions expressed in this report Finalized by Des Triana M.D. on 08/03/2016 1:33 AM. Dictated by Saurav Foster M.D. on 08/03/2016 1:27 AM. BLOOD TYPE CONFIRMATION - ORDER ONLY IF REQUESTED BY LAB (08/02/2016 5:29 PM) Component Value Range ABO/RH(D) O POS Specimen Blood TYPE & CROSSMATCH (08/02/2016 11:37 AM) Component Value Range Units Ordered 4 Crossmatch Expires 08/05/2016 Record Check 2ND TYPE REQUIRED ABO/RH(D) O POS Antibody Screen NEG Unit Number [id number] Blood Component Type RBC,ADSOL,LEUKO REDUCED,2ND CONT. Unit Division 0 Status OF Unit TRANSFUSED Transfusion Status OK TO TRANSFUSE Crossmatch Result COMPATIBLE,ELECTRONIC Unit Number [id number] Blood Component Type RBC,ADSOL,LEUKO REDUCED,1ST CONT. Unit Division 0 Status OF Unit REL FROM ALLOC Transfusion Status OK TO TRANSFUSE Crossmatch Result COMPATIBLE,ELECTRONIC Unit Number [id number] Blood Component Type RBC,ADSOL,LEUKO REDUCED Unit Division 0 Status OF Unit REL FROM ALLOC Transfusion Status OK TO TRANSFUSE Crossmatch Result COMPATIBLE,ELECTRONIC Unit Number [id number] Blood Component Type RBC,ADSOL,LEUKO REDUCED Unit Division 0 Status OF Unit REL FROM ALLOC Transfusion Status OK TO TRANSFUSE Crossmatch Result COMPATIBLE,ELECTRONIC Unit Number [id number] Blood Component Type RBC,ADSOL,LEUKO REDUCED Unit Division 0 Status OF Unit REL FROM ALLOC Transfusion Status OK TO TRANSFUSE Crossmatch Result COMPATIBLE,ELECTRONIC Unit Number [id number] Blood Component Type RBC,ADSOL,LEUKO REDUCED Unit Division 0 Status OF Unit TRANSFUSED Transfusion Status OK TO TRANSFUSE Crossmatch Result COMPATIBLE,ELECTRONIC Specimen Blood PROCALCITONIN (08/02/2016 4:51 AM) Component Value Range Procalcitonin <0.05 <0.10 NG/ML Specimen Blood 2-D + DOPPLER ECHOCARDIOGRAM (08/01/2016 11:56 AM) Component Value Range BSA 1.95 m2 ECHO EF 60 % Referring Provider Yuval Mcdonald PA-C LVIDD 6.2 4.2-5.9 cm LVIDS 4.6 cm IVS 1.3 0.6-1.0 cm PW 1.2 0.6-1.0 cm FS 25.81 28-44 % EF 43.88 % LA size 4.6 3.0-4.0 cm LA volume 115.0 18-58 mL Left Atrium Index 58.97 10-32 Right Ventricular Basal 3.1 cm (2.4-4.2) Diameter Right Atrial Area 22.8 cm2 (<=18) Right Ventricular Mid 1.7 cm (2.0-3.5) Diameter Right Atrial Major 6.1 cm (<=5.3) Dimension Right Ventricular Long 9.4 cm (5.6-8.6) Diameter Right Atrial Minor 4.4 cm (<=4.4) Dimension Sinus 4.8 2.1-3.5 cm STJ 4.5 1.7-3.4 cm Proximal aorta 4.4 2.1-3.4 cm Ascending aorta 4.7 2.0-3.6 cm AV peak velocity 1.4 m/s TV rest pulmonary artery 58 mmHg pressure E/A ratio 2.00 TDI e' 0.150 m/s E/E' ratio 10.67 MV Peak E Sohail PW 1.600 m/s MV Peak A Sohail 0.800 m/s Right Heart Systolic TDI 0.180 m/s S' Right Heart Systolic MPI 0.64 Right Heart Systolic ET 265.0 ms Right Heart Systolic TCO 434.0 ms Right Heart Systolic 2.9 cm Mmode TAPSE Narrative Rest Echo: Overall left ventricular systolic function is normal. EF~ 60% No regional wall motion abnormalities identified MV thickening with eccentrically directed severe MR Mild aortic insufficiency No significant pericardial effusion Mild LV and LAdilation Mild LVH Normal diastolic function Moderate aortic root dilation at multiple levels ( no measurement > 5 cm) Increased estimated peak systolic PA pressure=58 mmHg BNP (B-TYPE NATRIURETIC PEPTI) (07/31/2016 9:50 PM) Component Value Range B Type Natriuretic 473.0 (H) 0-100 PG/ML Peptide Specimen Blood HEMOGLOBIN A1C (07/31/2016 9:50 PM) Component Value Range Hemoglobin A1C 4.9Comment: 4.0-6.0 % The ADA recommends that most patients with type 1 and type 2 diabetes maintain an A1c level <7%. Specimen Blood COMPREHENSIVE METABOLIC PANEL (07/31/2016 9:50 PM) Component Value Range Sodium 135 (L) 137-147 MMOL/L Potassium 3.6 3.5-5.1 MMOL/L Chloride 99 98-110 MMOL/L Glucose 103 (H) 70-100 MG/DL Blood Urea Nitrogen 16 7-25 MG/DL Creatinine 1.40 (H) 0.4-1.24 MG/DL Calcium 9.1 8.5-10.6 MG/DL Total Protein 7.1 6.0-8.0 G/DL Total Bilirubin 1.0 0.3-1.2 MG/DL Albumin 3.7 3.5-5.0 G/DL Alk Phosphatase 140 (H) 25-110 U/L AST (SGOT) 47 (H) 7-40 U/L CO2 27 21-30 MMOL/L ALT (SGPT) 69 (H) 7-56 U/L Anion Gap 9 3-12 eGFR Non 50 (L)Comment: >60 mL/min The eGFR is not validated for use in drug dosing adjustments. Continue to use estimated creatinine clearance per dosing reference text. Please contact the Clinical Pharmacist for questions. eGFR >60Comment: >60 mL/min The eGFR is not validated for use in drug dosing adjustments. Continue to use estimated creatinine clearance per dosing reference text. Please contact the Clinical Pharmacist for questions. Specimen Blood URINALYSIS, MICROSCOPIC (07/31/2016 9:45 PM) Component Value Range WBCs,UA 0-2 0-2 /HPF RBCs,UA 0-2 0-3 /HPF Specimen Urine URINALYSIS DIPSTICK (07/31/2016 9:45 PM) Component Value Range Color,UA STRAW Turbidity,UA CLEAR CLEAR-CLEAR Specific [place]-Urine 1.024 1.003-1.035 pH,UA 5.0 5.0-8.0 Protein,UA NEG NEG-NEG Glucose,UA NEG NEG-NEG Ketones,UA NEG NEG-NEG Bilirubin,UA NEG NEG-NEG Blood,UA NEG NEG-NEG Urobilinogen,UA NORMAL NORM-NORMAL Nitrite,UA NEG NEG-NEG Leukocytes,UA NEG NEG-NEG Urine Ascorbic Acid, UA NEG NEG-NEG Specimen Urine GENERAL RAD CHEST EXTERNAL IMAGING (07/30/2016 10:30 AM)Only the most recent of 2 results within the time period is included. Narrative This order has been auto finalized and does not contain a result. CT CHEST/ABD/PEL EXTERNAL IMAGING (07/27/2016 12:55 PM) Narrative This order has been auto finalized and does not contain a result.
[~2016-08-24 15:44] MED LIST: AZIT250T5 PO; CEFD300C3 PO; ENAL1TAB16 PO
[2016-10-31] MEDS ORDERED: CLIN300C11 (09:39)
[2016-10-31] MEDS ORDERED: ASPI-808 PO (09:39)
[2016-10-31] MEDS ORDERED: METO-270 (09:39)
[2016-10-31] MEDS ORDERED: GABA-486 (09:39)
== END 2016-11-17 | disposition home or self-care (01) ==
LOC: CR 15:44
PROVIDERS: ATTEND Internal Medicine Cardiovascular Disease
DX: Z48.812 Encounter for surgical aftercare following surgery on the circulatory system (principal); Z95.2 Presence of prosthetic heart valve
CPT/HCPCS: 93798

== ENCOUNTER → 2016-09-22 | Outpatient (CLI) | payer MEDICARE ==
[~2016-09-22] MED LIST changes: +ASPI-808 PO; +CLIN300C11; +GABA-486; +METO-270
--- OUTSIDE RECORDS SUMMARY | 2016-09-22 11:12 | XMS REPORT | Continuity of Care Document ---
Author Author [facility] Organization [facility] Address Unknown Phone Unavailable Care Team Providers Care Exhaust Emissions Automotive Technician Name Role Phone Jayashree Wade PCP [phone] Source Comments Some departments are not documenting in the electronic medical record. If you do not see the information that you expected, contact Release of Information in the Health Information Management department at [phone] for further assistance in locating additional records.[facility] Active Allergies and Adverse Reactions Allergen Noted Date Severity Reactions Comments Oxycodone 09/02/2016 Medium RASH Current Medications Prescription Sig. Disp. Refills Start End Date Status Date amiodarone (CORDARONE) Take 2 tabs twice a day 98 Tab 0 08/07/20 Active 200 mg tablet for 2 weeks, then 2 tabs 16 once a day for 2 weeks, then 1 tab once a day until complete warfarin (COUMADIN) 1 mg Take 0.5 Tabs by mouth at 90 Tab 3 08/07/20 Active tablet bedtime daily. 16 senna/docusate Take 2 Tabs by mouth 40 Tab 0 08/07/20 Active (SENOKOT-S) 8.6/50 mg twice daily. 16 tablet potassium chloride SR Take 1 Tab by mouth 30 Tab 0 08/07/20 Active (K-DUR) 10 mEq tablet daily. Take with a meal 16 and a full glass of water. metoprolol XL (TOPROL XL) Take 1 Tab by mouth 90 Tab 3 25/20 Active 25 mg extended release daily. 16 tablet furosemide (LASIX) 20 mg Take 1 Tab by mouth every 30 Tab 0 25/20 Active tablet morning. 16 gabapentin (NEURONTIN) Take 100 mg by mouth Active 100 mg capsule three times daily. aspirin 81 mg chewable Chew 1 Tab by mouth 90 Tab 3 08/07/20 Discontin tablet daily. Take with food. 16 16 ued oxyCODONE (ROXICODONE, Take 1-2 Tabs by mouth 30 Tab 0 08/07/20 Discontin OXY-IR) 5 mg tablet every 4 hours as needed 16 16 ued Active Problems Problem Noted Date Numbness and tingling 09/02/2016 CKD (chronic kidney disease) stage 3, GFR 30-59 ml/min 08/04/2016 Acute blood loss anemia 08/04/2016 Pulmonary hypertension (HCC) 08/02/2016 Nonrheumatic aortic valve insufficiency 08/01/2016 Non-rheumatic mitral regurgitation 08/01/2016 Dilated aortic root (HCC) 08/01/2016 Overview: Root replacement 08/03/16 Acute on chronic diastolic heart failure (HCC) 08/01/2016 Resolved Problems Problem Noted Date Resolved Date Postop shock,cardiogenic (HCC) 08/04/2016 08/07/2016 Acute systolic heart failure (HCC) 08/04/2016 08/07/2016 Ventricular tachycardia ([facility]) 08/03/2016 08/07/2016 CAP (community acquired pneumonia) 08/01/2016 08/04/2016 Most Recent Encounters Date Type Specialty Providers Description 09/21/2016 Telephone Cardiothoracic Surgery Padilla Shelley RN General Question 09/15/2016 Ancillary Radiology Outpatient, Radiologist Diagnosis unknown Orders (Primary Dx) 09/04/2016 Documentation Cardiothoracic Surgery Brenda Stephen RN 09/02/2016 Office Visit Cardiothoracic Surgery Aryan Mijares MD S /P MVR (mitral valve replacement) (Primary Dx); Numbness and tingling 09/02/2016 Telephone Neurology Leonie Gomez MD 09/02/2016 Orders Only Neurology Leonie Gomez MD Numbness and tingling in both hands (Primary Dx) 09/02/2016 Telephone Neurology Leonie Gomez MD 09/02/2016 Telephone Cardiothoracic Surgery Brenda Stephen RN Follow-up Phone Call 08/27/2016 Telephone Cardiothoracic Surgery Brenda Stephen, TED Follow-up Phone Call 08/19/2016 Telephone Cardiothoracic Surgery Padilla Shelley RN General Question 08/19/2016 Telephone Cardiothoracic Surgery Padilla Shelley RN Numbness 08/10/2016 Telephone Natali Williamson RN Follow-up Phone Call - [phone] 08/03/2016 Hospital Cardiology Yuval Mcdonald PA-C Canceled (Error ) Encounter 08/03/2016 Surgery Aryan Mijares MD REPLACEMENT MITRAL VALVE 08/02/2016 Anesthesia Lorraine Quinonez MD Event 07/31/2016 Hospital Aryan Mijares MD Non-rheumatic mitral - Encounter regurgitation 08/07/2016 07/31/2016 Hospital Radiology Encounter 07/31/2016 Hospital Sterling Diana MD Encounter Social History Tobacco Use Types Packs/Day Years Used Date Never Smoker Alcohol Use Drinks/Week oz/Week Comments Yes 6 Cans of 3.6 beer Last Filed Vital Signs Vital Sign Reading Time Taken Blood Pressure 150/74 09/02/2016 10:05 AM [facility]OR [facility] Pulse 59 09/02/2016 10:05 AM [facility] Temperature 36.5 C (97.7 F) 08/07/2016 12:00 PM [facility] Respiratory Rate - - Height 1.753 m (5' 9") 09/02/2016 10:05 AM [facility] Weight 78.472 kg (173 lb) 09/02/2016 10:05 AM [facility] Body Mass Index 25.54 09/02/2016 10:05 AM [facility] Oxygen Saturation 98% 09/02/2016 10:05 AM [facility] Plan of Care Date Type Specialty Providers Description 10/01/2016 Appointment Neurology 01/14/2017 Appointment Neurology Lolly Foster MD [address] [place] [address] [phone] (Fax) Health Maintenance Due Date Last Done Comments Hepatitis C Screening 1945 Physical (Comprehensive) 1952 Exam Pertussis Vaccine 1956 Tetanus Vaccine 1962 Colorectal Cancer 1995 Screening Shingles Vaccine 2005 Prevnar/Pneumovax (#1) 2010 Influenza Vaccine 05/14/2016 Procedures from Last 3 Months Procedure Name Priority Date/Time Associated Diagnosis Comments PROCEDURES-SCAN 08/11/2016 Results for this 12:09 PM [facility] procedure are in the results section. PROCEDURES-SCAN 08/11/2016 Results for this 8:59 AM [facility] procedure are in the results section. PROCEDURES-SCAN 08/11/2016 Results for this 8:59 AM [facility] procedure are in the results section. PROCEDURES-SCAN 08/11/2016 Results for this 8:59 AM [facility] procedure are in the results section. PROCEDURES-SCAN 08/11/2016 Results for this 8:58 AM [facility] procedure are in the results section. PROCEDURES-SCAN 08/11/2016 Results for this 8:53 AM [facility] procedure are in the results section. PROCEDURES-SCAN 08/11/2016 Results for this 8:52 AM [facility] procedure are in the results section. PROCEDURES-SCAN 08/11/2016 Results for this 8:52 AM [facility] procedure are in the results section. PROCEDURES-SCAN 08/05/2016 Results for this 6:58 AM [facility] procedure are in the results section. PROCEDURES-SCAN 08/04/2016 Results for this 7:59 AM [facility] procedure are in the results section. PROCEDURES-SCAN 08/04/2016 Results for this 7:59 AM [facility] procedure are in the results section. PROCEDURES-SCAN 08/04/2016 Results for this 7:59 AM [facility] procedure are in the results section. ANESTHESIA Routine 08/03/2016 Results for this TRANSEESOPHAGEAL 1:59 PM [facility] procedure are in the ECHOCARDIOGRAM results section. ANESTHESIA PULMONARY Routine 08/03/2016 Results for this ARTERY CATHETER INSERTION 1:59 PM [facility] procedure are in the results section. ANESTHESIA CENTRAL LINE Routine 08/03/2016 Results for this INSERTION 1:59 PM [facility] procedure are in the results section. ANESTHESIA ARTERIAL LINE Routine 08/03/2016 Results for this INSERTION 1:59 PM [facility] procedure are in the results section. Results [...] Results - WedAug 07, 2016 7:34 AM [facility] PA and lateral chest Clinical indication: Mitral [...] - [place] Aug 06, 2016 12:28 PM [facility] EXAM: CHEST SINGLE VIEW HISTORY: s/p AVR, [...] time period is included. Component Value Range A4Bvw-Bkcaf Venous 57.2 % Specimen Blood PROCEDURES-SCAN (08/04/2016 [...] 2.0 MMOL/L O2 Sat-Arterial 97.6 95-99 % Oixotjiesso-BVQ-Rfu 22.7 21-28 MMOL/L Specimen Blood, arterial - Blood POC BLOOD GAS ARTERIAL (08/03/2016 7:08 PM)Only the most recent of 6 results within the time period is included. Component Value Range PH-ART-POC 7.41 7.35-7.45 EBS0-HWO-IHZ 29 (L) 35-45 MMHG PO2-ART-POC 78 (L) 80-100 MMHG Base Def-ART-POC 6.0 MMOL/L O2 Sat-ART-POC 96.0 95-99 % Ggzyhtvrqav-SDI-HMQ 18.2 (L) 21-28 MMOL/L LINE PLCMT 1V CXR (08/03/2016 2:43 PM) Impressions 1.INTERVAL [...] M.D. on 08/03/2016 3:00 PM. Narrative LINE PLCID 1V CXR History: ET Tube and Line Placement. Technique: Single portable AP upright view of the chest was obtained. Comparison: Chest x-ray from August 02, 2016. Findings: ET tube in place approximately well above the johnny. Right IJ Austin-Yessenia catheter in place with tip overlying the [...] Results - WedAug 03, 2016 4:07 PM [facility] LINE PLCID 1V CXR History: ET Tube and Line Placement. Technique: Single portable AP upright view of the chest was obtained. Comparison: Chest x-ray from August 02, 2016. Findings: ET tube in place approximately well above the johnny. Right IJ Austin-Yessenia catheter in place with tip overlying the [...] pre-procedure diagnosis and valvular assessment CPT codes: 60887 - BRENDAN 2D imaging (w or w/o M-mode) including probe placement, image acquisition, interpretation & report, 71410 - PWD and/or CWD f/u or limited study and 45847 - Color flow velocity mapping Patient location: [...] Apical anterior: normal Apical inferior: normal Long [place] View Basal anteroseptal: normal Basal inferolateral: normal Mid anteroseptal: normal Mid inferolateral: normal Apical lateral: normal Apical septal: normal [place]: normal Mid Short [place] View Mid anteroseptal: normal Mid anterior: normal [...] of the mitral valve: no Return to [facility] for echo-related diagnosis: no Aorta intact after [...] pre-procedure diagnosis and valvular assessment CPT codes: 47223 - BRENDAN 2D imaging (w or w/o M-mode) including probe placement, image acquisition, interpretation & report, 17252 - PWD and/or CWD f/u or limited study and 30975 - Color flow velocity mapping Patient location: [...] Apical anterior: normal Apical inferior: normal [place] View Basal anteroseptal: normal Basal inferolateral: normal Mid anteroseptal: normal Mid inferolateral: normal Apical lateral: normal Apical septal: normal [place]: normal Mid Short [place] View Mid anteroseptal: normal Mid anterior: normal [...] pre-procedure diagnosis and valvular assessment CPT codes: 42834 - BRENDAN 2D imaging (w or w/o M-mode) including probe placement, image acquisition, interpretation & report, 69246 - PWD and/or CWD f/u or limited study and 15882 - Color flow velocity mapping Patient location: [...] Apical anterior: normal Apical inferior: normal [place] View Basal anteroseptal: normal Basal inferolateral: normal Mid anteroseptal: normal Mid inferolateral: normal Apical lateral: normal Apical septal: normal [place]: normal Mid [place] View Mid anteroseptal: normal Mid anterior: normal [...] pre-procedure diagnosis and valvular assessment CPT codes: 84954 - BRENDAN 2D imaging (w or w/o M-mode) including probe placement, image acquisition, interpretation & report, 38803 - PWD and/or CWD f/u or limited study and 24131 - Color flow velocity mapping Patient location: [...] Apical anterior: normal Apical inferior: normal [place] View Basal anteroseptal: normal Basal inferolateral: normal Mid anteroseptal: normal Mid inferolateral: normal Apical lateral: normal Apical septal: normal [place]: normal Mid [place] View Mid anteroseptal: normal Mid anterior: normal [...] PM) Component Value Range PATHOLOGY REPORT [facility] [email or web address] Yoanna Moreno MD, PhD, Director of Anatomic Pathology Department of Pathology and Laboratory Medicine [address] [place] [phone] Surgical Pathology Office: [phone] SURGICAL PATHOLOGY REPORT NAME: CORI GOMEZ SURG PATH #: [id number] MR #: [id number] SPECIMEN CLASS: SR BILLING #: [id number] ALT ID #: LOCATION: [facility] DATE OF PROCEDURE: 08/03/2016 AGE: 70 [...] in this report. +++Electronically Signed Out By+++ ana rosa/08/03/2016 Interpreted by: Erin Son M.D. 08/04/2016 ################################################## ###################### Material Received: A: ascending aorta B: anterior mitral valve leaflets History: 70-year-old male with a clinical history of mitral regurgitation, aortic regurgitation, ascending aortic aneurysm. Gross Description: A. Fixative: Formalin Labeled: "Ascending aorta" Dimensions: 6.0 x 6.0 x 1.5 cm aggregate Calcifications: No Cassette A1- Epitaxial Reactor Operator sections of aorta ([facility]) B. Fixative: Formalin Labeled: "Anterior mitral valve leaflet" Dimensions: 4.0 x 2.5 x 0.3 Cassette B1- Epitaxial Reactor Operator sections of valve. ([facility]) [facility]/08/03/2016 POC BLOOD GAS OMAR (08/03/2016 12:45 PM)Only the most recent of 2 results within the time period is included. Component Value Range PH-OMAR-POC 7.38 7.30-7.40 SVV5-ACP-IWH 41 36-50 MMHG PO2-OMAR-POC 43 33-48 MMHG Base Def-OMAR-POC 1.0 MMOL/L O2 Sat-OMAR-POC 78.0 (H) 55-71 % Efxefbwrjot-JJQ-IQO 24.5 MMOL/L POC ACTIVATED CLOTTING TIME (08/03/2016 12:42 PM)Only the most recent of 6 results within the time period is included. Component Value Range Activated Clotting Time 110 s PREPARE APHERESIS PLATELETS (08/03/2016 6:56 AM) Component Value Range Units Ordered 1 Unit Number [id number] Blood Component Type APHERESIS PLT,LEUKO REDUCED,1ST CONT. Unit Division 0 Status OF Unit REL FROM ALLOC Transfusion Status OK TO TRANSFUSE Specimen Other (Specify) PREPARE PLASMA (FFP) (08/03/2016 6:55 AM) Component Value Range Units Ordered 4 Unit Number [id number] Blood Component Type APHERESIS PLASMA RT 2 Unit Division 0 Status OF Unit TRANSFUSED Transfusion Status OK TO TRANSFUSE Unit Number [id number] Blood Component Type APHERESIS PLASMA THAWED Unit Division 0 Status OF Unit REL FROM ALLOC Transfusion Status OK TO TRANSFUSE Unit Number [id number] Blood Component Type APHERESIS PLASMA THAWED Unit Division 0 Status OF Unit REL FROM ALLOC Transfusion Status OK TO TRANSFUSE Unit Number [id number] Blood Component Type THAWED PLASMA Unit Division [...] Results - WedAug 03, 2016 1:36 AM [facility] CAROTID DOPPLER ULTRASOUND: CLINICAL INDICATION: Preoperative evaluation [...] O POS Antibody Screen NEG Unit Number [id number] Blood Component Type RBC,ADSOL,LEUKO REDUCED,2ND CONT. Unit Division 0 Status OF Unit TRANSFUSED Transfusion Status OK TO TRANSFUSE Crossmatch Result COMPATIBLE,ELECTRONIC Unit Number [id number] Blood Component Type RBC,ADSOL,LEUKO REDUCED,1ST CONT. Unit Division 0 Status OF Unit REL FROM ALLOC Transfusion Status OK TO TRANSFUSE Crossmatch Result COMPATIBLE,ELECTRONIC Unit Number [id number] Blood Component Type RBC,ADSOL,LEUKO REDUCED Unit Division 0 Status OF Unit REL FROM ALLOC Transfusion Status OK TO TRANSFUSE Crossmatch Result COMPATIBLE,ELECTRONIC Unit Number [id number] Blood Component Type RBC,ADSOL,LEUKO REDUCED Unit Division 0 Status OF Unit REL FROM ALLOC Transfusion Status OK TO TRANSFUSE Crossmatch Result COMPATIBLE,ELECTRONIC Unit Number [id number] Blood Component Type RBC,ADSOL,LEUKO REDUCED Unit Division 0 Status OF Unit REL FROM ALLOC Transfusion Status OK TO TRANSFUSE Crossmatch Result COMPATIBLE,ELECTRONIC Unit Number [id number] Blood Component Type RBC,ADSOL,LEUKO REDUCED Unit Division 0 Status OF Unit TRANSFUSED Transfusion Status OK TO TRANSFUSE Crossmatch Result COMPATIBLE,ELECTRONIC Specimen Blood PROCALCITONIN (08/02/2016 4:51 AM) Component Value Range Procalcitonin <0.05 <0.10 NG/ML Specimen Blood 2-D + DOPPLER ECHOCARDIOGRAM (08/01/2016 11:56 AM) Component Value Range BSA 1.95 m2 ECHO EF 60 % Referring Provider Yuval THOMPSON-C LVIDD 6.2 4.2-5.9 cm LVIDS 4.6 cm [...] Range Color,UA STRAW Turbidity,UA CLEAR CLEAR-CLEAR Specific [place]-Urine 1.024 1.003-1.035 pH,UA 5.0 5.0-8.0 Protein,UA NEG NEG-NEG Glucose,UA NEG NEG-NEG Ketones,UA NEG NEG-NEG Bilirubin,UA NEG NEG-NEG Blood,UA NEG NEG-NEG Urobilinogen,UA NORMAL NORM-NORMAL Nitrite,UA NEG NEG-NEG Leukocytes,UA NEG NEG-NEG Urine Ascorbic Acid, UA NEG NEG-NEG Specimen Urine IR MISC EXTERNAL IMAGING (07/31/2016 1:15 PM) Narrative This order has been auto finalized and does not contain a result. GENERAL RAD CHEST EXTERNAL IMAGING (07/30/2016 10:30 AM)Only the most recent of 2 results within the time period is included. Narrative This order has been auto finalized and does not contain a result. CT CHEST/ABD/PEL EXTERNAL IMAGING (07/27/2016 12:55 PM) Narrative This order has been auto finalized and does not contain a result.
--- NOTE | 2016-09-22 11:46 | Diagnostic Imaging Report ---
PROCEDURE: US left lower extremity venous. TECHNIQUE: Multiple real-time grayscale images were obtained over the left lower extremity in various projections. Additional duplex Doppler and color Doppler images were also obtained. INDICATION: Left lower extremity pain and swelling. FINDINGS: The examination demonstrates an 8 x 6 x 9 cm hematoma in the left groin. No flow seen within this. A cyst is present in the popliteal region measuring 4.6 x 1.9 cm. There is no evidence of DVT. IMPRESSION: 1. There is no evidence of a DVT. 2. There is a popliteal cyst. 3. A hematoma is present in the left groin. Dictated by: Dictated on workstation # [id number]
== END ==
LOC: RAD 11:07
PROVIDERS: ATTEND Nurse Practitioner
DX: M79.605 Pain in left leg (principal); I97.630 Postprocedural hematoma of a circulatory system organ or structure following a cardiac catheterization

== ENCOUNTER 2016-10-31 09:24 | Emergency (ER) | payer MEDICARE ==
[~2016-10-31] VITALS: Ht 175.3 cm; Wt 84.8 kg
[~2016-10-31 09:24] MED LIST changes: -ASPI-808 PO; -CLIN300C11; -GABA-486; -METO-270
--- OUTSIDE RECORDS SUMMARY | 2016-10-31 09:30 | XMS REPORT | Continuity of Care Document ---
Author Author [facility] Address Unknown Phone Unavailable Care Team Providers Care Blister Packing Machine Tender Name Role Phone Jayashree Wade PCP [phone] Source Comments Some departments are not documenting in the electronic medical record. If you do not see the information that you expected, contact Release of Information in the Health Information Management department at [phone] for further assistance in locating additional records.[facility] Active Allergies and Adverse Reactions Allergen Noted [...] failure (HCC) 08/04/2016 08/07/2016 Ventricular tachycardia ([facility]) 08/03/2016 08/07/2016 CAP (community acquired pneumonia) 08/01/2016 [...] RN Follow-up Phone Call - [phone] 08/03/2016 [facility] Cardiology Yuval Mcdonald PA-C Canceled (Error ) [...] Taken Blood Pressure 150/74 09/02/2016 10:05 AM ESCAPEMENT MATCHER Pulse 59 09/02/2016 10:05 AM ESCAPEMENT MATCHER Temperature 36.5 C (97.7 F) 08/07/2016 12:00 PM ESCAPEMENT MATCHER Respiratory Rate - - Height 1.753 m (5' 9") 09/02/2016 10:05 AM ESCAPEMENT MATCHER Weight 78.472 kg (173 lb) 09/02/2016 10:05 AM ESCAPEMENT MATCHER Body Mass Index 25.54 09/02/2016 10:05 AM ESCAPEMENT MATCHER Oxygen Saturation 98% 09/02/2016 10:05 AM ESCAPEMENT MATCHER Plan of Care Date Type Specialty Providers Description 01/14/2017 Appointment Neurology Lolly Foster MD [address] [facility] [address] [place] [address] [phone] (Fax) Health Maintenance Due Date Last Done Comments Hepatitis C Screening 1945 Physical (Comprehensive) 1952 Exam Pertussis Vaccine 1956 Tetanus Vaccine 1962 Colorectal Cancer 1995 Screening Shingles Vaccine 2005 Prevnar/Pneumovax (#1) 2010 Influenza Vaccine 05/14/2016 Procedures from Last 3 Months Procedure Name Priority Date/Time Associated Diagnosis Comments PROCEDURES-SCAN 08/11/2016 Results for this 12:09 PM ESCAPEMENT MATCHER procedure are in the results section. PROCEDURES-SCAN 08/11/2016 Results for this 8:59 AM ESCAPEMENT MATCHER procedure are in the results section. PROCEDURES-SCAN 08/11/2016 Results for this 8:59 AM ESCAPEMENT MATCHER procedure are in the results section. PROCEDURES-SCAN 08/11/2016 Results for this 8:59 AM ESCAPEMENT MATCHER procedure are in the results section. PROCEDURES-SCAN 08/11/2016 Results for this 8:58 AM ESCAPEMENT MATCHER procedure are in the results section. PROCEDURES-SCAN 08/11/2016 Results for this 8:53 AM ESCAPEMENT MATCHER procedure are in the results section. PROCEDURES-SCAN 08/11/2016 Results for this 8:52 AM ESCAPEMENT MATCHER procedure are in the results section. PROCEDURES-SCAN 08/11/2016 Results for this 8:52 AM ESCAPEMENT MATCHER procedure are in the results section. PROCEDURES-SCAN 08/05/2016 Results for this 6:58 AM ESCAPEMENT MATCHER procedure are in the results section. PROCEDURES-SCAN 08/04/2016 Results for this 7:59 AM ESCAPEMENT MATCHER procedure are in the results section. PROCEDURES-SCAN 08/04/2016 Results for this 7:59 AM ESCAPEMENT MATCHER procedure are in the results section. PROCEDURES-SCAN 08/04/2016 Results for this 7:59 AM ESCAPEMENT MATCHER procedure are in the results section. ANESTHESIA Routine 08/03/2016 Results for this TRANSEESOPHAGEAL 1:59 PM ESCAPEMENT MATCHER procedure are in the ECHOCARDIOGRAM results section. ANESTHESIA PULMONARY Routine 08/03/2016 Results for this ARTERY CATHETER INSERTION 1:59 PM ESCAPEMENT MATCHER procedure are in the results section. ANESTHESIA CENTRAL LINE Routine 08/03/2016 Results for this INSERTION 1:59 PM ESCAPEMENT MATCHER procedure are in the results section. ANESTHESIA ARTERIAL LINE Routine 08/03/2016 Results for this INSERTION 1:59 PM ESCAPEMENT MATCHER procedure are in the results section. Results [...] Results - WedAug 07, 2016 7:34 AM ESCAPEMENT MATCHER PA and lateral chest Clinical indication: Mitral [...] - [place] Aug 06, 2016 12:28 PM ESCAPEMENT MATCHER EXAM: CHEST SINGLE VIEW HISTORY: s/p AVR, [...] time period is included. Component Value Range D2Why-Djlsz Venous 57.2 % Specimen Blood PROCEDURES-SCAN (08/04/2016 [...] 2.0 MMOL/L O2 Sat-Arterial 97.6 95-99 % Ctbcznvspji-SLF-Akx 22.7 21-28 MMOL/L Specimen Blood, arterial - Blood POC BLOOD GAS ARTERIAL (08/03/2016 7:08 PM)Only the most recent of 6 results within the time period is included. Component Value Range PH-ART-POC 7.41 7.35-7.45 HDU3-LBJ-UPG 29 (L) 35-45 MMHG PO2-ART-POC 78 (L) 80-100 MMHG Base Def-ART-POC 6.0 MMOL/L O2 Sat-ART-POC 96.0 95-99 % Fvdskymoepf-YKZ-WCT 18.2 (L) 21-28 MMOL/L LINE PLCLA 1V CXR (08/03/2016 2:43 PM) Impressions 1.INTERVAL [...] M.D. on 08/03/2016 3:00 PM. Narrative LINE [facility] 1V CXR History: ET Tube and Line Placement. Technique: Single portable AP upright view of the chest was obtained. Comparison: Chest x-ray from August 02, 2016. Findings: ET tube in place approximately well above the johnny. Right IJ [place] catheter in place with tip overlying the [...] Results - WedAug 03, 2016 4:07 PM ESCAPEMENT MATCHER LINE [facility] 1V CXR History: ET Tube and Line Placement. Technique: Single portable AP upright view of the chest was obtained. Comparison: Chest x-ray from August 02, 2016. Findings: ET tube in place approximately well above the johnny. Right IJ [place]Yessenia catheter in place with tip overlying the [...] pre-procedure diagnosis and valvular assessment CPT codes: 84923 - BRENDAN 2D imaging (w or w/o M-mode) including probe placement, image acquisition, interpretation & report, 25372 - PWD and/or CWD f/u or limited study and 74135 - Color flow velocity mapping Patient location: [...] Apical anterior: normal Apical inferior: normal Long [place] View Basal anteroseptal: normal Basal inferolateral: normal Mid anteroseptal: normal Mid inferolateral: normal Apical lateral: normal Apical septal: normal [place]: normal Mid [place] View Mid anteroseptal: normal Mid anterior: normal [...] pre-procedure diagnosis and valvular assessment CPT codes: 83592 - BRENDAN 2D imaging (w or w/o M-mode) including probe placement, image acquisition, interpretation & report, 09587 - PWD and/or CWD f/u or limited study and 83518 - Color flow velocity mapping Patient location: [...] Apical anterior: normal Apical inferior: normal Long [place] View Basal anteroseptal: normal Basal inferolateral: normal Mid anteroseptal: normal Mid inferolateral: normal Apical lateral: normal Apical septal: normal [place]: normal Mid [place] View Mid anteroseptal: normal Mid anterior: normal [...] pre-procedure diagnosis and valvular assessment CPT codes: 38149 - BRENDAN 2D imaging (w or w/o M-mode) including probe placement, image acquisition, interpretation & report, 05153 - PWD and/or CWD f/u or limited study and 98829 - Color flow velocity mapping Patient location: [...] Apical anterior: normal Apical inferior: normal Long [place] View Basal anteroseptal: normal Basal inferolateral: normal Mid anteroseptal: normal Mid inferolateral: normal Apical lateral: normal Apical septal: normal [place]: normal Mid [place] View Mid anteroseptal: normal Mid anterior: normal [...] pre-procedure diagnosis and valvular assessment CPT codes: 41651 - BRENDAN 2D imaging (w or w/o M-mode) including probe placement, image acquisition, interpretation & report, 15182 - PWD and/or CWD f/u or limited study and 66576 - Color flow velocity mapping Patient location: [...] Apical anterior: normal Apical inferior: normal [place] Basal anteroseptal: normal Basal inferolateral: normal Mid anteroseptal: normal Mid inferolateral: normal Apical lateral: normal Apical septal: normal [place]: normal Mid [place] View Mid anteroseptal: normal Mid anterior: normal [...] of the mitral valve: no Return to [facility] for echo-related diagnosis: no Aorta intact after decannulation: yes Post-procedure LVEF measured: yes; 40% Post-procedure RV dysfunction: mild dysfunction SURGICAL PATHOLOGY (08/03/2016 1:43 PM) Component Value Range PATHOLOGY REPORT [email or web address] Yoanna Moreno MD, PhD, Director of Anatomic Pathology Department of Pathology and Laboratory Medicine [address] [place] [id number] Surgical Pathology Office: [phone] SURGICAL PATHOLOGY REPORT NAME: CORI GOMEZ SURG PATH #: [id number] MR #: [id number] SPECIMEN CLASS: SR BILLING #: [id number] ALT ID #: LOCATION: [facility] DATE OF PROCEDURE: 08/03/2016 AGE: 70 SEX: [...] 1.5 cm aggregate Calcifications: No Cassette A1- Floor Sander sections of aorta ([facility]) B. Fixative: Formalin Labeled: "Anterior mitral valve leaflet" Dimensions: 4.0 x 2.5 x 0.3 Cassette B1- Floor Sander sections of valve. (j) damaso/08/03/2016 POC BLOOD GAS OMAR (08/03/2016 12:45 PM)Only the most recent of 2 results within the time period is included. Component Value Range PH-OMAR-POC 7.38 7.30-7.40 FFD8-IZD-BCU 41 36-50 MMHG PO2-OMAR-POC 43 33-48 MMHG Base Def-OMAR-POC 1.0 MMOL/L O2 Sat-OMAR-POC 78.0 (H) 55-71 % Cupcuhifjka-NAI-HYK 24.5 MMOL/L POC ACTIVATED CLOTTING TIME (08/03/2016 12:42 PM)Only the most recent of 6 results within the time period is included. Component Value Range Activated Clotting Time 110 s PREPARE APHERESIS PLATELETS (08/03/2016 6:56 AM) Component Value Range Units Ordered 1 Unit Number [id number] Blood Component Type APHERESIS PLT,LEUKO REDUCED,1ST CONT. Unit Division 0 Status OF Unit REL FROM ALLOC Transfusion Status OK TO TRANSFUSE Specimen Other (Specify) PREPARE PLASMA (FFP) (08/03/2016 6:55 AM) Component Value Range Units Ordered 4 Unit Number [id number] Blood Component Type APHERESIS PLASMA RT 2 Unit Division 0 Status OF Unit TRANSFUSED Transfusion Status OK TO TRANSFUSE Unit Number [id number] Blood Component Type APHERESIS PLASMA THAWED Unit Division 0 Status OF Unit REL FROM ALLOC Transfusion Status OK TO TRANSFUSE Unit Number [id number] Blood Component Type APHERESIS PLASMA THAWED Unit Division 0 Status OF Unit REL FROM ALLOC Transfusion Status OK TO TRANSFUSE Unit Number [id number] Blood Component Type THAWED PLASMA Unit Division [...] M.D. on 08/03/2016 1:33 AM. Dictated by Saruav Foster M.D. on 08/03/2016 1:27 AM. Narrative [...] Results - WedAug 03, 2016 1:36 AM ESCAPEMENT MATCHER CAROTID DOPPLER ULTRASOUND: CLINICAL INDICATION: Preoperative evaluation [...] O POS Antibody Screen NEG Unit Number [id number] Blood Component Type RBC,ADSOL,LEUKO REDUCED,2ND CONT. Unit Division 0 Status OF Unit TRANSFUSED Transfusion Status OK TO TRANSFUSE Crossmatch Result COMPATIBLE,ELECTRONIC Unit Number [id number] Blood Component Type RBC,ADSOL,LEUKO REDUCED,1ST CONT. Unit Division 0 Status OF Unit REL FROM ALLOC Transfusion Status OK TO TRANSFUSE Crossmatch Result COMPATIBLE,ELECTRONIC Unit Number [id number] Blood Component Type RBC,ADSOL,LEUKO REDUCED Unit Division 0 Status OF Unit REL FROM ALLOC Transfusion Status OK TO TRANSFUSE Crossmatch Result COMPATIBLE,ELECTRONIC Unit Number [id number] Blood Component Type RBC,ADSOL,LEUKO REDUCED Unit Division 0 Status OF Unit REL FROM ALLOC Transfusion Status OK TO TRANSFUSE Crossmatch Result COMPATIBLE,ELECTRONIC Unit Number [id number] Blood Component Type RBC,ADSOL,LEUKO REDUCED Unit Division 0 Status OF Unit REL FROM ALLOC Transfusion Status OK TO TRANSFUSE Crossmatch Result COMPATIBLE,ELECTRONIC Unit Number [id number] Blood Component Type RBC,ADSOL,LEUKO REDUCED Unit Division [...] Range Color,UA STRAW Turbidity,UA CLEAR CLEAR-CLEAR Specific [place]-Urine 1.024 1.003-1.035 pH,UA 5.0 5.0-8.0 Protein,UA NEG NEG-NEG Glucose,UA NEG NEG-NEG Ketones,UA NEG NEG-NEG Bilirubin,UA NEG NEG-NEG Blood,UA NEG NEG-NEG Urobilinogen,UA NORMAL NORM-NORMAL Nitrite,UA NEG NEG-NEG Leukocytes,UA NEG NEG-NEG Urine Ascorbic Acid, UA NEG NEG-NEG Specimen Urine [facility] (07/31/2016 1:15 PM) Narrative This order has been auto finalized and does not contain a result.
[2016-10-31] MEDS ORDERED: GABA-486 (09:39)
[2016-10-31] MEDS ORDERED: CLIN300C11 (09:39)
[2016-10-31] MEDS ORDERED: METO-270 (09:39)
[2016-10-31] MEDS ORDERED: ASPI-808 PO (09:39)
[2016-10-31 10:01] LABS: BASOPHILS % (AUTO) 0 % (0-10); EOSINOPHILS % (AUTO) 0 % (0-10); LYMPHOCYTES # (AUTO) 0.5 X 10^3 (1.0-4.0); LYMPHOCYTES % (AUTO) 5 % (12-44); MEAN CORPUSCULAR HEMOGLOBIN 25 PG (25-34); MEAN CORPUSCULAR HGB CONC 33 G/DL (32-36); MEAN CORPUSCULAR VOLUME 77 FL (80-99); MEAN PLATELET VOLUME 9.7 FL (7.4-10.4); MONOCYTES # (AUTO) 1.5 X 10^3 (0.0-1.0); MONOCYTES % (AUTO) 16 % (0-12); NEUTROPHILS # (AUTO) 7.4 X 10^3 (1.8-7.8); NEUTROPHILS % (AUTO) 79 % (42-75); PLATELET COUNT 236 10^3/uL (130-400); RED BLOOD COUNT 4.06 10^6/uL (4.35-5.85); RED CELL DISTRIBUTION WIDTH 16.9 % (10.0-14.5); WHITE BLOOD COUNT 9.4 10^3/uL (4.3-11.0)
[2016-10-31 10:20] LABS: ALANINE AMINOTRANSFERASE 29 U/L (0-55); ALBUMIN 3.5 G/DL (3.2-4.5); ANION GAP 9 MMOL/L (5-14); ASPARTATE AMINO TRANSFERASE 28 U/L (5-34); BILIRUBIN,TOTAL 1.5 MG/DL (0.1-1.0); BLOOD UREA NITROGEN 14 MG/DL (7-18); BUN/CREATININE RATIO 16; CALCIUM 8.6 MG/DL (8.5-10.1); CARBON DIOXIDE 22 MMOL/L (21-32); CHLORIDE 101 MMOL/L (98-107); CREATININE SERUM 0.85 MG/DL (0.60-1.30); GFR ESTIMATED > 60; GLUCOSE 129 MG/DL (70-105); POTASSIUM 3.8 MMOL/L (3.6-5.0); SODIUM 132 MMOL/L (135-145); TOTAL PROTEIN 6.3 G/DL (6.4-8.2)
--- NOTE | 2016-10-31 10:20 | ED Lower Extremity ---
General Chief Complaint: Lower Extremity Stated Complaint: FEVER/L LEG SWELLING Nursing Triage Note: TO ROOM PER W/C REPORTS C/O OF PAIN AND SWELLING IN L LEG SINCE WED. WAS SEEN BY SUPERVISOR COSTUMING AT 'S OFFICE ON WEDNESDAY. LAB DRAW NEG LAB. STARTED ON ANTIBIOTIC. ALSO REPORTS SINCE HIS VALVE REPLACEMENT IN JUL HAS HAD KNOT IN R GROIN. Nursing Sepsis Screen: No Definite Risk Source: patient Exam Limitations: no limitations History of Present Illness Time seen by provider: 10:15 Initial Comments The patient is a 71-year-old white male who presents with complaints of a lump in his left groin and swelling and pain in his left calf beginning 2-3 days ago. Importantly he underwent mitral valve replacement at [facility] in July. Shortly thereafter he noted a large lump in his left groin. It was sonogram in August and again in September and was thought to be consistent with a hematoma. He is not clear that is reducing any in size. The left calf began to swell this week and although he is able to walk he reports there is considerable pain and he minimizes the walking. His only blood thinner is a 325 mg aspirin. He reports that he was on Coumadin for 2 months and then transitioned to aspirin. He confirms that it was a bioprosthetic valve that was placed to treat his severe mitral regurgitation. Onset: last week Method of Injury: other Allergies and Home Medications Allergies Coded Allergies: No Known Drug Allergies (Unverified , 12/20/12) Home Medications Aspirin 325 Mg Tablet 325 MG PO (Reported) Clindamycin HCl 300 Mg Capsule #60 (Reported) Gabapentin 100 Mg Capsule #360 (Reported) Metoprolol Succinate 25 Mg Tab.er.24h #90 (Reported) Constitutional: see HPI EENTM: no symptoms reported Respiratory: no symptoms reported Cardiovascular: no symptoms reported Gastrointestinal: no symptoms reported Genitourinary: no symptoms reported Musculoskeletal: no symptoms reported Skin: no symptoms reported Psychiatric/Neurological: No Symptoms Reported Past Wmyhkwa-Jfcnej-Tvufku Hx Patient Social History Alcohol Use: Denies Use Recreational Drug Use: No Smoking Status: Never a Smoker Recent Foreign Travel: No Contact w/Someone Who Travel: No Recent Infectious Disease Expo: No Recent Hopitalizations: No Immunizations Up To Date Date of Pneumonia Vaccine: Jun 21, 2012 Date of Influenza Vaccine: Jun 24, 2016 Seasonal Allergies Seasonal Allergies: No Surgeries HX Surgeries: Yes (rotator cuff anys) Surgeries: Valve Replacement Respiratory Hx Respiratory Disorders: No Cardiovascular Hx Cardiac Disorders: No Neurological Hx Neurological Disorders: No Genitourinary Hx Genitourinary Disorders: No Gastrointestinal Hx Gastrointestinal Disorders: No Musculoskeletal Hx Musculoskeletal Disorders: No Endocrine Hx Endocrine Disorders: No HEENT HX ENT Disorders: No Cancer Hx Cancer: Yes Cancer: Skin Psychosocial Hx Psychiatric Problems: No Integumentary HX Skin/Integumentary Disorder: No (skin cancer removed) Blood Transfusions Hx Blood Disorders: No Family Medical History Family Medial History: Cardiovascular disease G8 BROTHER G8 BROTHER FH: lung cancer 19 FATHER Kidney disease G8 BROTHER Prostate cancer 19 FATHER Seizure disorder G8 BROTHER G8 SISTER Physical Exam Vital Signs Vital Sign - Last 12Hours 10/31/16 09:27 Temp 97.2 Pulse 80 Resp 18 B/P 181/86 Capillary Refill : Less Than 3 Seconds General Appearance: WD/WN no apparent distress HEENT: normal ENT inspection Neck: full range of motion Cardiovascular: normal peripheral pulses regular rate, rhythm no edema no gallop no JVD no murmur Respiratory: chest non-tender lungs clear normal breath sounds no respiratory distress no accessory muscle use Gastrointestinal: normal bowel sounds non tender soft no organomegaly no pulsatile mass Back: normal inspection no CVA tenderness no vertebral tenderness Neurologic/Psychiatric: watch dial printer II-XII nml as tested no motor/sensory deficits alert normal mood/affect oriented x 3 Skin: normal color warm/dry Lymphatic: no adenopathy Comments There is a large egg-shaped mass in the left groin over the femoral artery. There is a surgical's incision in the area. This is slightly fluctuant. There is one plus edema in the left calf and foot and the calf is firm compared to the right. Progress/Results/Core Measures Results/Orders Lab Results Laboratory Tests Test 10/31/16 09:54 10/31/16 11:12 Range/Units Alanine Aminotransferase (ALT/SGPT) 29 0-55 U/L Albumin 3.5 3.2-4.5 G/DL Alkaline Phosphatase 220 H 40-136 U/L Anion Gap 9 5-14 MMOL/L Anisocytosis SLIGHT Aspartate Amino Transf (AST/SGOT) 28 5-34 U/L BUN/Creatinine Ratio 16 Band Neutrophils 0 % Basophils # (Auto) 0.0 0.0-0.1 10^3/uL Basophils % (Manual) 0 % Basophils (%) (Auto) 0 0-10 % Blood Urea Nitrogen 14 7-18 MG/DL Calcium Level 8.6 8.5-10.1 MG/DL Carbon Dioxide Level 22 21-32 MMOL/L Chloride Level 101 98-107 MMOL/L Creatinine 0.85 0.60-1.30 MG/DL Eosinophils # (Auto) 0.0 0.0-0.3 10^3/uL Eosinophils % (Manual) 1 % Eosinophils (%) (Auto) 0 0-10 % Estimat Glomerular Filtration Rate > 60 Glucose Level 129 H 70-105 MG/DL Hematocrit 31 L 40-54 % Hemoglobin 10.2 L 13.3-17.7 G/DL Lymphocytes # (Auto) 0.5 L 1.0-4.0 X 10^3 Lymphocytes % (Manual) 5 % Lymphocytes (%) (Auto) 5 L 12-44 % Mean Corpuscular Hemoglobin 25 25-34 PG Mean Corpuscular Hemoglobin Concent 33 32-36 G/DL Mean Corpuscular Volume 77 L 80-99 FL Mean Platelet Volume 9.7 7.4-10.4 FL Monocytes # (Auto) 1.5 H 0.0-1.0 X 10^3 Monocytes % (Manual) 5 % Monocytes (%) (Auto) 16 H 0-12 % Neutrophils # (Auto) 7.4 1.8-7.8 X 10^3 Neutrophils % (Manual) 89 % Neutrophils (%) (Auto) 79 H 42-75 % Platelet Count 236 130-400 10^3/uL Potassium Level 3.8 3.6-5.0 MMOL/L Red Blood Count 4.06 L 4.35-5.85 10^6/uL Red Cell Distribution Width 16.9 H 10.0-14.5 % Sodium Level 132 L 135-145 MMOL/L Total Bilirubin 1.5 H 0.1-1.0 MG/DL Total Protein 6.3 L 6.4-8.2 G/DL White Blood Count 9.4 4.3-11.0 10^3/uL Urine Bacteria NEGATIVE /HPF Urine Bilirubin NEGATIVE NEGATIVE Urine Casts NONE /LPF Urine Clarity CLEAR Urine Color YELLOW Urine Crystals NONE /LPF Urine Culture Indicated NO Urine Glucose (UA) 1+ H NEGATIVE Urine Ketones NEGATIVE NEGATIVE Urine Leukocyte Esterase NEGATIVE NEGATIVE Urine Mucus NEGATIVE /LPF Urine Nitrite NEGATIVE NEGATIVE Urine Protein 2+ H NEGATIVE Urine RBC RARE /HPF Urine RBC (Auto) NEGATIVE NEGATIVE Urine Specific [place] 1.020 1.016-1.022 Urine Squamous Epithelial Cells NONE /HPF Urine Urobilinogen 4 H NORMAL MG/DL Urine WBC RARE /HPF Urine pH 6 5-9 My Orders Orders-JAGDISH MARIA MD Cbc With Automated Diff (10/31/16 09:42) Comprehensive Metabolic Panel (10/31/16 09:42) Ua Culture If Indicated (10/31/16 09:42) Manual Differential (10/31/16 09:54) Us Venous Lower Ext Lt (10/31/16 10:10) Vital Signs/I&O Vital Sign - Last 12Hours 10/31/16 09:27 Temp 97.2 Pulse 80 Resp 18 B/P 181/86 Blood Pressure Mean: 117 Departure Communication Progress Notes The ultrasound showed that subjectively the hematoma in the left groin appeared slightly larger than it did last month. 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 Although the left leg is swollen there is no evidence of DVT. Impression Impression: Primary Impression: slowly resolving hematoma left groin Additional Impressions: Bakers cyst left popliteal fossa DVT ruled out Disposition: 01 HOME, SELF-CARE Condition: Stable/Unchanged Departure-Patient Inst. Decision time for Depature: 12:06 Referrals: CASA WADE DO (PCP/Family) Primary Care Physician Add. Discharge Instructions: All discharge instructions reviewed with patient and/or family. Voiced understanding. Elevate legs when possible. Consider evaluation by Dr. Funez for the Bakers cyst. Remember that the hematoma is expected to take months to resolve. See Dr. Wade as necessary JAGDISH MARIA MD Oct 31, 2016 10:20
[2016-10-31 10:26] LABS: BAND NEUTROPHILS 0 %; BASOPHILS % (MANUAL) 0 %; EOSINOPHILS % (MANUAL) 1 %; LYMPHOCYTES % (MANUAL) 5 %; NEUTROPHILS % (MANUAL) 89 %
[2016-10-31 10:27] LABS: ANISOCYTOSIS SLIGHT
[2016-10-31 11:22] LABS: BILIRUBIN,URINE NEGATIVE (NEGATIVE); KETONES,URINE NEGATIVE (NEGATIVE); LEUKOCYTE ESTERASE ,URINE NEGATIVE (NEGATIVE); NITRITE,URINE NEGATIVE (NEGATIVE); PH,URINE 6 (5-9); PROTEIN,URINE 2+ (NEGATIVE); UROBILINOGEN,URINE 4 MG/DL (NORMAL)
[2016-10-31 11:31] LABS: WBC,URINE RARE /HPF
--- NOTE | 2016-10-31 11:52 | Diagnostic Imaging Report ---
PROCEDURE: US left lower extremity venous. TECHNIQUE: Multiple real-time grayscale images were obtained over the left lower extremity in various projections. Additional duplex Doppler and color Doppler images were also obtained. Indication: Left leg pain and swelling, history of recent left inguinal arterial access. Comparison: 09/22/2016. Technique: The left lower extremity deep venous system was interrogated from the common femoral vein through the popliteal vein. These images were assessed for grayscale appearance, color and spectral Doppler blood flow, compression, and augmentation. Findings: Large hematoma is noted within the left groin measuring 10.5 x 7.0 x 9.1 cm. No pseudoaneurysm identified. No active extravasation identified by ultrasound. There is no evidence of intraluminal filling defect. Normal compression and augmentation is noted throughout. Left Vega's cyst is present. Impression: 1. No sonographic evidence of deep venous thrombosis in the left lower extremity. 2. Large left inguinal hematoma measuring up to 10.5 cm. No pseudoaneurysm identified. 3. Left Vega's cyst measuring 4.4 x 4.3 x 2.1 cm. Dictated by: Dictated on workstation # [id number]
[2016-10-31 12:19] VITALS: BP 182/84
== END 2016-10-31 12:21 | disposition home or self-care (01) ==
LOC: EDUNIT# 09:24 → ER 09:25
DX: I97.638 Postprocedural hematoma of a circulatory system organ or structure following other circulatory system procedure (principal); M71.22 Synovial cyst of popliteal space [Baker], left knee; Z79.82 Long term (current) use of aspirin; Z95.2 Presence of prosthetic heart valve
CPT/HCPCS: 36415; 80053; 81000; 85007; 85027; 99283

== ENCOUNTER 2016-11-13 09:52 | Outpatient (RCR) | payer MEDICARE ==
--- OUTSIDE RECORDS SUMMARY | 2016-10-21 08:30 | XMS REPORT | Continuity of Care Document ---
Author Author [facility] Organization [facility] Address Unknown Phone Unavailable Care Team Providers Care Art Tracer Name Role Phone Jayashree Wade PCP [phone] Source Comments Some departments are not documenting in the electronic medical record. If you do not see the information that you expected, contact Release of Information in the Health Information Management department at [phone] for further assistance in locating additional records.[facility] Active Allergies and Adverse Reactions Allergen Noted [...] Active 100 mg capsule three times daily. Active Problems Problem Noted Date Numbness and [...] heart failure (HCC) 08/04/2016 08/07/2016 Ventricular tachycardia ([facility]) 08/03/2016 08/07/2016 CAP (community acquired pneumonia) 08/01/2016 08/04/2016 Most Recent Encounters Date Type Specialty Providers Description 10/13/2016 Telephone Cardiothoracic Surgery Bridgett Donis APRN Follow-up Phone Call 10/01/2016 Clinical Neurology Brachial plexopathy Support (Primary Dx); Median nerve neuropathy, right; Ulnar neuropathy of right upper extremity 09/21/2016 Telephone Cardiothoracic Surgery Padilla Shelley RN [...] Phone Call 08/27/2016 Telephone Cardiothoracic Surgery Brenda Stephen RN Follow-up Phone Call 08/19/2016 Telephone Cardiothoracic Surgery Padilla Shelley RN General Question 08/19/2016 Telephone Cardiothoracic Surgery Padilla Shelley RN Numbness 08/10/2016 Telephone Natali Williamson RN Follow-up Phone Call - [phone] 08/03/2016 [facility] Cardiology Yuval Mcdonald PA-C Canceled (Error [...] Taken Blood Pressure 150/74 09/02/2016 10:05 AM OIL SPRAYING MACHINE OPERATOR Pulse 59 09/02/2016 10:05 AM OIL SPRAYING MACHINE OPERATOR Temperature 36.5 C (97.7 F) 08/07/2016 12:00 PM OIL SPRAYING MACHINE OPERATOR Respiratory Rate - - Height 1.753 m (5' 9") 09/02/2016 10:05 AM OIL SPRAYING MACHINE OPERATOR Weight 78.472 kg (173 lb) 09/02/2016 10:05 AM OIL SPRAYING MACHINE OPERATOR Body Mass Index 25.54 09/02/2016 10:05 AM OIL SPRAYING MACHINE OPERATOR Oxygen Saturation 98% 09/02/2016 10:05 AM OIL SPRAYING MACHINE OPERATOR Plan of Care Date Type Specialty Providers Description 01/14/2017 Appointment Neurology Lolly Foster MD [address] [facility] [address] [place] [address] [phone] (Fax) Health Maintenance Due Date Last Done Comments Hepatitis C Screening 1945 Physical (Comprehensive) 1952 Exam Pertussis Vaccine 1956 Tetanus Vaccine 1962 Colorectal Cancer 1995 Screening Shingles Vaccine 2005 Prevnar/Pneumovax (#1) 2010 Influenza Vaccine 05/14/2016 Procedures from Last 3 Months Procedure Name Priority Date/Time Associated Diagnosis Comments PROCEDURES-SCAN 08/11/2016 Results for this 12:09 PM OIL SPRAYING MACHINE OPERATOR procedure are in the results section. PROCEDURES-SCAN 08/11/2016 Results for this 8:59 AM OIL SPRAYING MACHINE OPERATOR procedure are in the results section. PROCEDURES-SCAN 08/11/2016 Results for this 8:59 AM OIL SPRAYING MACHINE OPERATOR procedure are in the results section. PROCEDURES-SCAN 08/11/2016 Results for this 8:59 AM OIL SPRAYING MACHINE OPERATOR procedure are in the results section. PROCEDURES-SCAN 08/11/2016 Results for this 8:58 AM OIL SPRAYING MACHINE OPERATOR procedure are in the results section. PROCEDURES-SCAN 08/11/2016 Results for this 8:53 AM OIL SPRAYING MACHINE OPERATOR procedure are in the results section. PROCEDURES-SCAN 08/11/2016 Results for this 8:52 AM OIL SPRAYING MACHINE OPERATOR procedure are in the results section. PROCEDURES-SCAN 08/11/2016 Results for this 8:52 AM OIL SPRAYING MACHINE OPERATOR procedure are in the results section. PROCEDURES-SCAN 08/05/2016 Results for this 6:58 AM OIL SPRAYING MACHINE OPERATOR procedure are in the results section. PROCEDURES-SCAN 08/04/2016 Results for this 7:59 AM OIL SPRAYING MACHINE OPERATOR procedure are in the results section. PROCEDURES-SCAN 08/04/2016 Results for this 7:59 AM OIL SPRAYING MACHINE OPERATOR procedure are in the results section. PROCEDURES-SCAN 08/04/2016 Results for this 7:59 AM OIL SPRAYING MACHINE OPERATOR procedure are in the results section. ANESTHESIA Routine 08/03/2016 Results for this TRANSEESOPHAGEAL 1:59 PM OIL SPRAYING MACHINE OPERATOR procedure are in the ECHOCARDIOGRAM results section. ANESTHESIA PULMONARY Routine 08/03/2016 Results for this ARTERY CATHETER INSERTION 1:59 PM OIL SPRAYING MACHINE OPERATOR procedure are in the results section. ANESTHESIA CENTRAL LINE Routine 08/03/2016 Results for this INSERTION 1:59 PM OIL SPRAYING MACHINE OPERATOR procedure are in the results section. ANESTHESIA ARTERIAL LINE Routine 08/03/2016 Results for this INSERTION 1:59 PM OIL SPRAYING MACHINE OPERATOR procedure are in the results section. Results from Last 3 Months EMG ORDER (10/01/2016)PROCEDURES-SCAN (08/11/2016 12:09 PM) Narrative Ordered by an [...] Results - WedAug 07, 2016 7:34 AM OIL SPRAYING MACHINE OPERATOR PA and lateral chest Clinical indication: Mitral [...] - [place] Aug 06, 2016 12:28 PM OIL SPRAYING MACHINE OPERATOR EXAM: CHEST SINGLE VIEW HISTORY: s/p AVR, [...] time period is included. Component Value Range M4Kmx-Khdqi Venous 57.2 % Specimen Blood PROCEDURES-SCAN (08/04/2016 [...] 2.0 MMOL/L O2 Sat-Arterial 97.6 95-99 % Lsdhahfiwgh-NUE-Col 22.7 21-28 MMOL/L Specimen Blood, arterial - Blood POC BLOOD GAS ARTERIAL (08/03/2016 7:08 PM)Only the most recent of 6 results within the time period is included. Component Value Range PH-ART-POC 7.41 7.35-7.45 GBB1-HQQ-YMA 29 (L) 35-45 MMHG PO2-ART-POC 78 (L) 80-100 MMHG Base Def-ART-POC 6.0 MMOL/L O2 Sat-ART-POC 96.0 95-99 % Honrwuscufs-OAR-DXI 18.2 (L) 21-28 MMOL/L LINE [facility] 1V CXR (08/03/2016 2:43 PM) Impressions 1.INTERVAL STERNOTOMY AND PROSTHETIC MITRAL VALVE REPLACEMENT. 2.TUBES AND LINES IN PLACE ABOVE. 3.NO SIGNIFICANT CHANGE IN RIGHT UPPER LOBE ALVEOLAR INFILTRATE CONCERNING FOR PNEUMONIA. Approved by Jeffrey Partt M.D. on 08/03/2016 3:53 PM By my electronic signature, I attest that I have personally reviewed the images for this examination and formulated the interpretations and opinions expressed in this report Finalized by Antonio Santiago M.D. on 08/03/2016 4:04 PM. Dictated by Jeffrey Pratt M.D. on 08/03/2016 3:00 PM. Narrative LINE [facility] 1V CXR History: ET Tube and Line Placement. Technique: Single portable AP upright view of the chest was obtained. Comparison: Chest x-ray from August 02, 2016. Findings: ET tube in place approximately well above the johnny. Right IJ [place]-Y[place] catheter in place with tip overlying the [...] Results - WedAug 03, 2016 4:07 PM OIL SPRAYING MACHINE OPERATOR LINE [facility] 1V CXR History: ET Tube and Line Placement. Technique: Single portable AP upright view of the chest was obtained. Comparison: Chest x-ray from August 02, 2016. Findings: ET tube in place approximately well above the johnny. Right IJ [place]-Yessenia catheter in place with tip overlying the [...] pre-procedure diagnosis and valvular assessment CPT codes: 39938 - BRENDAN 2D imaging (w or w/o M-mode) including probe placement, image acquisition, interpretation & report, 70754 - PWD and/or CWD f/u or limited study and 01821 - Color flow velocity mapping Patient location: [...] Apical anterior: normal Apical inferior: normal [place] Basal anteroseptal: normal Basal inferolateral: normal Mid anteroseptal: normal Mid inferolateral: normal Apical lateral: normal Apical septal: normal [place]: normal Mid [place] Mid anteroseptal: normal Mid anterior: normal [...] pre-procedure diagnosis and valvular assessment CPT codes: 96554 - BRENDAN 2D imaging (w or w/o M-mode) including probe placement, image acquisition, interpretation & report, 70082 - PWD and/or CWD f/u or limited study and 74776 - Color flow velocity mapping Patient location: [...] Apical anterior: normal Apical inferior: normal [place] Basal anteroseptal: normal Basal inferolateral: normal Mid anteroseptal: normal Mid inferolateral: normal Apical lateral: normal Apical septal: normal [place]: normal Mid [place] Mid anteroseptal: normal Mid anterior: normal [...] pre-procedure diagnosis and valvular assessment CPT codes: 46150 - BRENDAN 2D imaging (w or w/o M-mode) including probe placement, image acquisition, interpretation & report, 76763 - PWD and/or CWD f/u or limited study and 98783 - Color flow velocity mapping Patient location: [...] Apical anterior: normal Apical inferior: normal [place] Basal anteroseptal: normal Basal inferolateral: normal Mid anteroseptal: normal Mid inferolateral: normal Apical lateral: normal Apical septal: normal [place]: normal Mid [place] Mid anteroseptal: normal Mid anterior: normal [...] obtained and patient being monitored Staff Anesthesiologist: IVNO HUERTA Performed personally Indication for BRENDAN: assessment of ascending aorta, confirmation of pre-procedure diagnosis and valvular assessment CPT codes: 82347 - BRENDAN 2D imaging (w or w/o M-mode) including probe placement, image acquisition, interpretation & report, 64307 - PWD and/or CWD f/u or limited study and 48134 - Color flow velocity mapping Patient location: [...] Apical anterior: normal Apical inferior: normal [place] Basal anteroseptal: normal Basal inferolateral: normal Mid anteroseptal: normal Mid inferolateral: normal Apical lateral: normal Apical septal: normal [place]: normal Mid [place] Mid anteroseptal: normal Mid anterior: normal [...] of the mitral valve: no Return to [facility] for echo-related diagnosis: no Aorta intact after decannulation: yes Post-procedure LVEF measured: yes; 40% Post-procedure RV dysfunction: mild dysfunction SURGICAL PATHOLOGY (08/03/2016 1:43 PM) Component Value Range PATHOLOGY REPORT [facility] [email or web address] Thames Yoanna Moreno MD, PhD, Director of Anatomic Pathology Department of Pathology and Laboratory Medicine [address] [place] [phone] Surgical Pathology Office: [phone] SURGICAL PATHOLOGY REPORT NAME: CORI GOMEZ SURG PATH #: [id number] MR #: [id number] SPECIMEN CLASS: SR BILLING #: [id number] ALT ID #: LOCATION: [facility] DATE OF PROCEDURE: 08/03/2016 AGE: 70 [...] in this report. +++Electronically Signed Out By+++ angelaw/08/03/2016 Interpreted by: Erin Son M.D. 08/04/2016 ################################################## ###################### Material Received: A: ascending aorta B: anterior mitral valve leaflets History: 70-year-old male with a clinical history of mitral regurgitation, aortic regurgitation, ascending aortic aneurysm. Gross Description: A. Fixative: Formalin Labeled: "Ascending aorta" Dimensions: 6.0 x 6.0 x 1.5 cm aggregate Calcifications: No Cassette A1- Excel Expert sections of aorta ([facility]) B. Fixative: Formalin Labeled: "Anterior mitral valve leaflet" Dimensions: 4.0 x 2.5 x 0.3 Cassette B1- Excel Expert sections of valve. (j) damaso/08/03/2016 POC BLOOD GAS OMAR (08/03/2016 12:45 PM)Only the most recent of 2 results within the time period is included. Component Value Range PH-OMAR-POC 7.38 7.30-7.40 YBJ7-EJQ-FFU 41 36-50 MMHG PO2-OMAR-POC 43 33-48 MMHG Base Def-OMAR-POC 1.0 MMOL/L O2 Sat-OMAR-POC 78.0 (H) 55-71 % Eilsixjfhph-DQK-ILL 24.5 MMOL/L POC ACTIVATED CLOTTING TIME (08/03/2016 12:42 PM)Only the most recent of 6 results within the time period is included. Component Value Range Activated Clotting Time 110 s PREPARE APHERESIS PLATELETS (08/03/2016 6:56 AM) Component Value Range Units Ordered 1 Unit Number [id number] Blood Component Type APHERESIS PLT,LEUKO REDUCED,1ST CONT. Unit Division 0 Status OF Unit REL FROM ALLOC Transfusion Status OK TO TRANSFUSE Specimen Other (Specify) PREPARE PLASMA (FFP) (08/03/2016 6:55 AM) Component Value Range Units Ordered 4 Unit Number [id number] Blood Component Type APHERESIS PLASMA RT 2 Unit Division 0 Status OF Unit TRANSFUSED Transfusion Status OK TO TRANSFUSE Unit Number [id number] Blood Component Type APHERESIS PLASMA THAWED Unit Division 0 Status OF Unit REL FROM ALLOC Transfusion Status OK TO TRANSFUSE Unit Number [id number] Blood Component Type APHERESIS PLASMA THAWED Unit Division 0 Status OF Unit REL FROM ALLOC Transfusion Status OK TO TRANSFUSE Unit Number [id number] Blood Component Type THAWED PLASMA Unit Division [...] Results - WedAug 03, 2016 1:36 AM OIL SPRAYING MACHINE OPERATOR CAROTID DOPPLER ULTRASOUND: CLINICAL INDICATION: Preoperative evaluation [...] O POS Antibody Screen NEG Unit Number [id number] Blood Component Type RBC,ADSOL,LEUKO REDUCED,2ND CONT. Unit Division 0 Status OF Unit TRANSFUSED Transfusion Status OK TO TRANSFUSE Crossmatch Result COMPATIBLE,ELECTRONIC Unit Number [id number] Blood Component Type RBC,ADSOL,LEUKO REDUCED,1ST CONT. Unit Division 0 Status OF Unit REL FROM ALLOC Transfusion Status OK TO TRANSFUSE Crossmatch Result COMPATIBLE,ELECTRONIC Unit Number [id number] Blood Component Type RBC,ADSOL,LEUKO REDUCED Unit Division 0 Status OF Unit REL FROM ALLOC Transfusion Status OK TO TRANSFUSE Crossmatch Result COMPATIBLE,ELECTRONIC Unit Number [id number] Blood Component Type RBC,ADSOL,LEUKO REDUCED Unit Division 0 Status OF Unit REL FROM ALLOC Transfusion Status OK TO TRANSFUSE Crossmatch Result COMPATIBLE,ELECTRONIC Unit Number [id number] Blood Component Type RBC,ADSOL,LEUKO REDUCED Unit Division 0 Status OF Unit REL FROM ALLOC Transfusion Status OK TO TRANSFUSE Crossmatch Result COMPATIBLE,ELECTRONIC Unit Number [id number] Blood Component Type RBC,ADSOL,LEUKO REDUCED Unit Division [...] Range Color,UA STRAW Turbidity,UA CLEAR CLEAR-CLEAR Specific [place]-Urine 1.024 1.003-1.035 pH,UA 5.0 5.0-8.0 Protein,UA NEG NEG-NEG Glucose,UA NEG NEG-NEG Ketones,UA NEG NEG-NEG Bilirubin,UA NEG NEG-NEG Blood,UA NEG NEG-NEG Urobilinogen,UA NORMAL NORM-NORMAL Nitrite,UA NEG NEG-NEG Leukocytes,UA NEG NEG-NEG Urine Ascorbic Acid, UA NEG NEG-NEG Specimen [facility] (07/31/2016 1:15 PM) Narrative This [...]
[~2016-11-13 09:52] MED LIST changes: +ASPI-808 PO; +CLIN300C11; +GABA-486; +METO-270
== END 2016-11-25 10:31 | disposition home or self-care (01) ==
PROVIDERS: ATTEND Nurse Practitioner Family
DX: R29.898 Other symptoms and signs involving the musculoskeletal system (principal); Z98.890 Other specified postprocedural states

== ENCOUNTER → 2017-08-31 | Outpatient (CLI) | payer MEDICARE ==
[~2017-08-31] MED LIST changes: +AZIT250T12 PO; -AZIT250T5 PO; -METO-270; +METO-387
== END ==
LOC: CARD 12:45
PROVIDERS: ATTEND Nurse Practitioner Family
DX: I50.32 Chronic diastolic (congestive) heart failure (principal); Z95.2 Presence of prosthetic heart valve; Z98.890 Other specified postprocedural states
CPT/HCPCS: 93306

== ENCOUNTER → 2017-09-07 | Outpatient (CLI) | payer MEDICARE ==
[~2017-09-07] MED LIST changes: +CATHETER FLUSH 10 ML SYR IV PRN; +HEParin (CENTRAL IV FLUSH) 500 UNIT/5 ML SYR ONE
--- NOTE | 2017-09-09 19:06 | STRESS TEST ---
DATE OF SERVICE: 09/07/2017 RADIONUCLIDE VENTRICULOGRAPHY ORDERING PHYSICIAN: Ck rCaft MD, MA, FACP, FACC. PRIMARY PHYSICIAN: Jayashree Wade DO. CLINICAL DIAGNOSIS: Chronic systolic congestive heart failure. Autologous red blood cells tagged with 31.3 mCi of technetium-99m were injected for the study. Gated images show mild global hypokinesis of the left ventricle. Left ventricular ejection fraction is calculated to be 43%. CONCLUSION: Mild global hypokinesis, left ventricle with a calculated ejection fraction of 43%. Job ID: [id number] DocumentID: [id number] Dictated Date: 09/09/2017 14:17:43 Log Roper Date: 09/09/2017 14:44:05 Dictated By: CK CRAFT MD, MA, FACP, FACC,
== END ==
LOC: CARD 12:26
PROVIDERS: ATTEND Internal Medicine Cardiovascular Disease
DX: I50.22 Chronic systolic (congestive) heart failure (principal); Z95.2 Presence of prosthetic heart valve; Z98.890 Other specified postprocedural states; I42.0 Dilated cardiomyopathy
CPT/HCPCS: 78472

== ENCOUNTER → 2018-09-20 | Outpatient (CLI) | payer MEDICARE ==
[~2018-09-20] MED LIST changes: -CATHETER FLUSH 10 ML SYR IV PRN; -HEParin (CENTRAL IV FLUSH) 500 UNIT/5 ML SYR ONE
== END ==
LOC: CARD 10:32
PROVIDERS: ATTEND Nurse Practitioner Family
DX: I42.0 Dilated cardiomyopathy (principal); I50.22 Chronic systolic (congestive) heart failure; Z95.2 Presence of prosthetic heart valve; Z98.890 Other specified postprocedural states; I35.0 Nonrheumatic aortic (valve) stenosis
CPT/HCPCS: 93306

== ENCOUNTER → 2020-05-08 | Outpatient (CLI) | payer MEDICARE ==
[~2020-05-08] MED LIST changes: -METO-387; +MTP25TSR
== END ==
LOC: CARD 10:00
PROVIDERS: ATTEND Internal Medicine Cardiovascular Disease
DX: I08.2 Rheumatic disorders of both aortic and tricuspid valves (principal); I11.0 Hypertensive heart disease with heart failure; I50.32 Chronic diastolic (congestive) heart failure; Z98.890 Other specified postprocedural states; Z95.2 Presence of prosthetic heart valve
CPT/HCPCS: 93306

== ENCOUNTER → 2020-08-13 | Outpatient (CLI) | payer MEDICARE ==
[~2020-08-13] MED LIST changes: -CLIN300C11; +CLIN300C12
== END ==
LOC: CARD 10:00
PROVIDERS: ATTEND Nurse Practitioner Family
DX: I08.2 Rheumatic disorders of both aortic and tricuspid valves (principal); I50.22 Chronic systolic (congestive) heart failure; Z95.2 Presence of prosthetic heart valve
CPT/HCPCS: 93306

== ENCOUNTER → 2021-10-15 | Outpatient (CLI) | payer MEDICARE ==
[~2021-10-15] MED LIST changes: +CLIN-144; -CLIN300C12
== END ==
LOC: CARD 09:30
PROVIDERS: ATTEND Nurse Practitioner Family
DX: I08.2 Rheumatic disorders of both aortic and tricuspid valves (principal); I42.0 Dilated cardiomyopathy; Z95.2 Presence of prosthetic heart valve
CPT/HCPCS: 93306